=== PATIENT | female | born 1980 | race Caucasian/White ===

== ENCOUNTER → 2019-08-22 16:04 | Outpatient (CLI) | payer BC, SELFPAY ==
[2019-08-22 10:56] VITALS: BMI 22.1
[2019-08-22 18:46] LABS: HIV - WCH Non-Reactive (Nonreactive)
[2019-08-22 19:41] LABS: Chlamydia Trachomatis by PCR Negative (Negative); Neisserai gonorrhoeae by PCR Negative (Negative); Probe Check PASS; Sample Adequacy Control PASS; Specimen Processing Control PASS
[2019-08-25 02:24] LABS: Rapid Plasmin Reagin (RPR) NONREACTIVE (NONREACTIVE)
[2019-08-25 16:07] LABS: HCV Quant. RNA PCR HCV Not Detected IU/mL (.)
[2019-08-26 12:53] LABS: HSV 2 IgG < 0.91 index (0.00-0.90)
== END ==
PROVIDERS: Family Provider Family Medicine; PCP Family Medicine; Referring Provider Obstetrics & Gynecology; Visit Provider Obstetrics & Gynecology
DX: Z20.2 Contact with and (suspected) exposure to infections with a predominantly sexual mode of transmission (principal)
CPT/HCPCS: 36415; 86592; 86695; 86696; 86703; 87491; 87522; 87591

== ENCOUNTER → 2020-08-27 | Outpatient (CLI) | payer BC, SELFPAY ==
[2020-08-27 08:09] VITALS: BMI 26.5
== END | disposition home or self-care (01) ==
PROVIDERS: PCP Family Medicine; Referring Provider Obstetrics & Gynecology; Visit Provider Obstetrics & Gynecology
DX: Z12.4 Encounter for screening for malignant neoplasm of cervix (principal)

== ENCOUNTER → 2020-09-07 13:25 | Outpatient (CLI) | payer BC, SELFPAY ==
[2019-08-22 10:56] VITALS: BMI 22.1
[2020-08-31 13:17] VITALS: BMI 26.5
--- NOTE | 2020-09-07 13:39 | BI_ITS ---
MAMMOGRAPHY - BILATERAL SCREENING REASON FOR EXAM: Female, 40 years old. Routine annual screening examination. PERTINENT HISTORY: Non-contributory. TECHNIQUE: Digital bilateral breast danis (3D mammographic acquisition) in the CC and MLO projections. 2-D mediolateral oblique (MLO) and craniocaudad (CC) views of both breasts were obtained. CAD: Full Field Digital Mammography with Computer Added Detection was performed. COMPARISON: None. Baseline examination. FINDINGS: Breast Composition: There are scattered areas of fibroglandular density. There are no dominant masses or suspicious calcifications. No other significant abnormalities are identified. BI/SCRN MAMM (CAD)W/DANIS BILAT IMPRESSION: Negative screening mammogram. Yearly followup mammogram recommended. (A) ASSESSMENT CATEGORY: BIRADS Category 1: Negative. A letter regarding these results will be sent to the patient by the facility within 30 days. Approximately 10% of breast cancers are not detected by mammography. A normal mammogram should not delay biopsy of a clinically suspicious abnormality. [id number] Electronically Signed: Nghia León, at 14:19 EST , Service support ,
== END ==
PROVIDERS: PCP Family Medicine; Referring Provider Obstetrics & Gynecology; Visit Provider Obstetrics & Gynecology
DX: Z12.31 Encounter for screening mammogram for malignant neoplasm of breast (principal)
CPT/HCPCS: 77063; 77067

== ENCOUNTER 2021-10-28 16:00 | Outpatient (CLI) | payer BC, SELFPAY ==
[2021-11-06 13:31] LABS: HPV APTIMA, High Risk Negative (Negative)
== END 2021-10-28 23:59 | disposition home or self-care (01) ==
LOC: LABSPEC 16:02
PROVIDERS: PCP Family Medicine; Visit Provider Obstetrics & Gynecology
DX: Z12.4 Encounter for screening for malignant neoplasm of cervix (principal)
CPT/HCPCS: 87624; 88175; G0145

== ENCOUNTER 2021-11-25 13:16 | Outpatient (CLI) | payer BC, SELFPAY ==
--- NOTE | 2021-11-25 13:19 | BI_ITS ---
MAMMOGRAPHY - BILATERAL SCREENING REASON FOR EXAM: Female, 41 years old. Routine annual screening examination. PERTINENT HISTORY: Non-contributory. TECHNIQUE: Digital bilateral breast danis (3D mammographic acquisition) in the CC and MLO projections. 2-D mediolateral oblique (MLO) and craniocaudad (CC) views of both breasts were obtained. CAD: Full Field Digital Mammography with Computer Added Detection was performed. COMPARISON: Comparison is made with prior examination of 09/07/2020. FINDINGS: Breast Composition: There are scattered areas of fibroglandular density. There are no dominant masses or suspicious calcifications. No other significant abnormalities are identified. There has been no significant change since the prior study. BI/SCRN MAMM (CAD)W/DANIS BILAT IMPRESSION: Stable bilateral screening mammogram. Yearly follow-up mammogram recommended. (A) ASSESSMENT CATEGORY: BIRADS Category 1: Negative. A letter regarding these results will be sent to the patient by the facility within 30 days. Approximately 10% of breast cancers are not detected by mammography. A normal mammogram should not delay biopsy of a clinically suspicious abnormality. [id number] Electronically Signed: Nghia León MD at 14:04 EDT ,
== END 2021-11-25 23:59 | disposition home or self-care (01) ==
LOC: OPBI 13:18
PROVIDERS: PCP Family Medicine; Visit Provider Obstetrics & Gynecology
DX: Z12.31 Encounter for screening mammogram for malignant neoplasm of breast (principal)
CPT/HCPCS: 77063; 77067

== ENCOUNTER → 2021-12-12 | Outpatient (CLI) | payer BC, SELFPAY ==
--- NOTE | 2021-12-12 | CER_PTH ---
PATIENT: GLORIA PAIZ LOC: [facility] U#:[id number] AGE/SX: 41/F ROOM: RE12/12/[address]: Dr. Lexy Sol MD : 1980 BED: DIS: 12/12/2021 SPEC #: [id number] RECD: 12/12/21 11:19 STATUS: LUNA RELesa #: [id number] AVRIL: 12/12/21 00:[address]: Lexy Sol DEPT: SURGICAL PATHOLOGY RECD BY: Narda Moy ENTERED: 12/12/21 13:52 SP TYPE: CERV OTHR DR: Dr. Alfredo Armstrong, DO Tissues: A - Uterine cervix, NOS B - Endocervical Procedures: Surgery Specimen Level IV HEADER OPERATION: Colposcopy PRE-OP DIAGNOSIS: LGSIL TISSUE SUBMITTED: A ? 12 o?clock, B - ECC MICROSCOPIC DIAGNOSIS A. Cervix, 12 o?clock, biopsy: Scant minute fragments of benign ecto- and endocervical epithelium and mucous, negative for dysplasia. B. ECC: Fragments of benign endocervical epithelium and mucous, negative for dysplasia. CEDRIC:brody 12/13/2021 COMMENT Correlation with clinical findings and appropriate follow up are necessary. MICROSCOPIC DESCRIPTION Slides are reviewed. GROSS DESCRIPTION A - Received in fixative is one container labeled with the patient's name and designated 12 o'clock. The specimen consists of multiple minute fragments of mucoid keating tissue that in aggregate measure 0.5 x 0.1 x <0.1 cm. The specimen is totally submitted in one cassette. B - Received in fixative is one container labeled with the patient's name and designated ECC. The specimen consists of light keating mucoid material aggregating to 1 x 0.6 x <0.1 cm. The specimen is totally submitted in one cassette. / AM:brody 12/12/2021 TC:4 CPT: 49852 x2
== END | disposition home or self-care (01) ==
LOC: LABSPEC 13:44
PROVIDERS: PCP Family Medicine; Visit Provider Obstetrics & Gynecology
DX: R87.612 Low grade squamous intraepithelial lesion on cytologic smear of cervix (LGSIL) (principal)
CPT/HCPCS: 88305

== ENCOUNTER → 2022-01-02 | Outpatient (CLI) | payer BC, SELFPAY | END | disposition home or self-care (01) | LOC: LABSPEC 17:23 | PROVIDERS: PCP Family Medicine; Visit Provider Nurse Practitioner Women's Health | DX: N76.0 Acute vaginitis (principal) | CPT/HCPCS: 87070; 87205 ==

== ENCOUNTER → 2022-11-13 | Outpatient (CLI) | payer BC, SELFPAY ==
[2022-11-21 14:47] LABS: HPV APTIMA, High Risk Positive (Negative)
== END | disposition home or self-care (01) ==
LOC: LABSPEC 16:31
PROVIDERS: PCP Family Medicine; Referring Provider Obstetrics & Gynecology; Visit Provider Obstetrics & Gynecology
DX: Z12.4 Encounter for screening for malignant neoplasm of cervix (principal)
CPT/HCPCS: 87624; 88175; G0145

== ENCOUNTER → 2022-12-03 | Outpatient (CLI) | payer BC, SELFPAY ==
--- NOTE | 2022-12-03 14:38 | BI_ITS ---
MAMMOGRAPHY - BILATERAL SCREENING 3-D TOMOSYNTHESIS REASON FOR EXAM: Female, 42 years old. Routine screening PERTINENT HISTORY: No significant family history. TECHNIQUE: 2-D mammograms and 3-D Tomosynthesis of the breast (s) were performed. CAD was performed. COMPARISON: 09/07/2020 FINDINGS: The breast composition is composed of scattered fibroglandular density. Scattered benign calcifications are seen. No dense spiculated masses or suspicious microcalcifications are identified. No architectural distortion is identified. There is no skin thickening or retraction. There has been no significant change since the prior study. BI/SCRN MAMM (CAD)W/DANIS BILAT IMPRESSION: No mammographic signs of malignancy. Routine yearly mammograms recommended. ASSESSMENT CATEGORY: BIRADS Category 1: Negative. A letter regarding these results will be sent to the patient by the facility within 30 days. FOLLOW UP RECOMMENDATION: Yearly follow up mammogram recommended. (A) Approximately 10% of breast cancers are not detected by mammography. A normal mammogram should not delay biopsy of a clinically suspicious abnormality. Electronically Signed: Fady Cormier MD at 15:23 EDT ,
== END | disposition home or self-care (01) ==
LOC: OPBI 14:37
PROVIDERS: PCP Family Medicine; Referring Provider Obstetrics & Gynecology; Visit Provider Obstetrics & Gynecology
DX: Z12.31 Encounter for screening mammogram for malignant neoplasm of breast (principal)
CPT/HCPCS: 77063; 77067

== ENCOUNTER → 2022-12-25 | Outpatient (CLI) | payer BC, SELFPAY ==
--- NOTE | 2022-12-25 | IMM_PTH ---
PATIENT: GLORIA PAIZ LOC: [facility] U#:[id number] AGE/SX: 42/F ROOM: RE12/25/[address]: Dr. Lexy Sol MD : 1980 BED: DIS: 12/25/2022 SPEC #: [id number] RECD: 12/29/22 13:18 STATUS: LUNA REQ #: [id number] AVRIL: 12/25/22 00:[address]: Lexy Sol DEPT: IMMUNOHISTOCHEMISTRY RECD BY: Alanna Varela ENTERED: 12/29/22 13:19 SP TYPE: IMMUNO OTHR DR: Dr. Alfredo Armstrong, DO Tissues: A - Uterine cervix, NOS Procedures: p16 (initial) KI-67 (add) PHYSICIAN & INSTITUTION [place] [id number] SPECIMEN INFORMATION: Tissue Source: A ? Cervical biopsy at 12 o?clock Clinical Info: HPV positive Specimen Number: [id number] CPT code: 59645, 92456 METHODOLOGY: Deparaffinized sections of prefer/formalin-fixed tissue or PAP/DQ stained slides are incubated with monoclonal/polyclonal antibodies/oligonucleotide probes. Localization is made via biotin free immunoperoxidase method. Appropriate controls are performed and reacted as expected. Results on target cell population are indicated in the following table: RESULTS: ANTIBODY / CLONE RESULT Block A P16 (E6H4) positive, focal patchy staining Ki-67 (30-9) positive, low These tests were developed and their performance characteristics determined by [facility]. They may not have been cleared or approved by the U.S. Food and Drug Administration. The FDA has determined that such clearance or approval is not necessary. The above immunohistochemical/dualISH markers are ordered and reviewed by the Pathologist. INTERPRETATION: A. Cervix at 12 o?clock, biopsy: Focal changes consistent with HPV cytopathic effects. SJ:brody 12/30/2022
--- NOTE | 2022-12-25 | CER_PTH ---
PATIENT: GLORIA PAIZ [facility] U#:[id number] AGE/SX: 42/F ROOM: RE12/25/[address]: Dr. Lexy Sol MD : 1980 BED: DIS: 12/25/2022 SPEC #: [id number] RECD: 12/25/22 16:40 STATUS: LUNA REYES #: [id number] AVRIL: 12/25/22 00:[address]: Lexy Sol DEPT: SURGICAL PATHOLOGY RECD BY: Narda Moy ENTERED: 12/26/22 12:28 SP TYPE: CERV OTHR DR: Dr. Alfredo Armstrong, DO Tissues: A - Uterine cervix, NOS B - Endocervical Procedures: Surgery Specimen Level IV HEADER OPERATION: Colposcopy PRE-OP DIAGNOSIS: HPV positive TISSUE SUBMITTED: A ? Cervical biopsy 12 o?clock, B - Endocervical curettings MICROSCOPIC DIAGNOSIS A. Cervix, 12 o?clock, biopsy: A fragment of squamous epithelium with changes consistent with HPV cytopathic effects. Acute inflammation. See comment. B. Endocervical curettings: Scant desquamative squamous epithelial cells and mucous, negative for dysplasia. CEDRIC:brody 12/29/2022 COMMENT A. Immunohistochemistry ([id number]) for surrogate HPV marker (p16) supports the above diagnosis. MICROSCOPIC DESCRIPTION Slides are reviewed. GROSS DESCRIPTION A - Received in fixative is one container labeled with the patient's name and designated 12 o'clock. The specimen consists of one irregular fragment of light keating soft tissue that measures 0.2 x 0.2 x 0.1 cm. The specimen is totally submitted in one cassette. B - Received in fixative is one container labeled with the patient's name and designated ECC. The specimen consists of one fragment of hemorrhagic soft tissue measuring 0.2 x 0.1 x 0.1 cm. The specimen is totally submitted in one cassette. / CEDRIC:brody 12/26/2022 TC:3 CPT: 52535 x2
== END | disposition home or self-care (01) ==
LOC: LABSPEC 16:46
PROVIDERS: PCP Family Medicine; Referring Provider Obstetrics & Gynecology; Visit Provider Obstetrics & Gynecology
DX: R87.820 Cervical low risk human papillomavirus (HPV) DNA test positive (principal)
CPT/HCPCS: 88305; 88341; 88342

== ENCOUNTER → 2023-11-19 | Outpatient (CLI) | payer BC, SELFPAY ==
[2023-11-25 12:09] LABS: HPV APTIMA, High Risk Negative (Negative)
== END | disposition home or self-care (01) ==
PROVIDERS: PCP Family Medicine; Referring Provider Obstetrics & Gynecology; Visit Provider Obstetrics & Gynecology
DX: Z12.4 Encounter for screening for malignant neoplasm of cervix (principal)
CPT/HCPCS: 87624; 88175; G0145

== ENCOUNTER → 2023-12-07 | Outpatient (CLI) | payer BC, SELFPAY ==
--- NOTE | 2023-12-07 13:26 | BI_ITS ---
MAMMOGRAPHY - BILATERAL SCREENING REASON FOR EXAM: Female, 43 years old. Routine annual screening examination. PERTINENT HISTORY: Non-contributory. TECHNIQUE: Digital bilateral breast danis (3D mammographic acquisition) in the CC and MLO projections. 2-D mediolateral oblique (MLO) and craniocaudad (CC) views of both breasts were obtained. CAD: Full Field Digital Mammography with Computer Added Detection was performed. COMPARISON: Comparison is made with prior study dated December 03, 2022 and November 25, 2021. FINDINGS: Breast Composition: The breasts are almost entirely fatty. There are no dominant masses or suspicious calcifications. Stable small benign-appearing bilateral axillary lymph nodes. No other significant abnormalities are identified. There has been no significant change since the prior study. BI/SCRN MAMM (CAD)W/DANIS BILAT IMPRESSION: Stable bilateral screening mammogram. Yearly follow-up mammogram recommended. (A) ASSESSMENT CATEGORY: BIRADS Category 2: Benign. A letter regarding these results will be sent to the patient by the facility within 30 days. Approximately 10% of breast cancers are not detected by mammography. A normal mammogram should not delay biopsy of a clinically suspicious abnormality. [id number] Electronically Signed: Nghia León MD at 14:06 EDT ,
[2023-12-07 13:57] LABS: Absolute Lymphocyte Count 2.69 X10^3/uL (0.83-4.51); Absolute Neutrophil Count 5.8 X10^3/uL (2.0-7.7); Basophil# 0.09 X10^3/uL; Eosinophil# 0.07 X10^3/uL; Eosinophils% 0.8 % (0-5); Hematocrit 38.3 % (37-47); Lymphocyte # 2.69 X10^3/ul (0.83-4.51); Mean Corp Hgb Conc 33.9 g/dL (32-36); Mean Corpuscular Hgb 31.3 pg (27.0-32.0); Mean Corpuscular Volume 92.1 fL (81-99); Mean Platelet Vol. 10.1 fl (6.2-12.0); Monocyte# 0.59 X10^3/uL; Monocyte% 6.4 % (0-10); NRBC Flagged by Analyzer 0 % (0-5); Neutrophil # 5.78 X10^3/uL (2.7-7.7); Platelet Count 386 K/mm3 (150-450); RBC Distribution Width CV 13.3 % (11.6-14.6); RBC Distribution Width SD 44.7 fl (35.1-43.9); Red Blood Count 4.16 M/mm3 (4.2-5.4); White Blood Count 9.3 K/mm3 (4.4-11.0)
[2023-12-07 14:15] LABS: Vitamin D,25 Hydroxy 31.5 ng/mL
[2023-12-07 14:16] LABS: Hemoglobin A1c 5.1 % (3.8-5.6)
[2023-12-07 14:21] LABS: ALB/GLOB Ratio 1.1 RATIO (0.9-2.4); AST(SGOT) 20 U/L (15-37); Alanine Aminotransfer ALT/SGPT 39 U/L (13-56); Alkaline Phosphatase 78 U/L (45-117); Anion Gap 4 (5-15); BUN 14 mg/dL (7-18); BUN/Creat Ratio 16.2 RATIO (10-20); Chloride 105 mmol/L (98-107); Cholesterol 192 mg/dL (200); Creatinine, Serum 0.86 mg/dL (0.55-1.02); EST Glomerular Filtration Rate 76 mL/min (>60); Est Glom Filt Rate - Afr Amer 92 mL/min (>60); Globulin 3.5 g/dL (2.2-4.2); Glucose 95 mg/dL (74-106); High Density Lipoprotein 59 mg/dL; Protein, Total 7.5 g/dL (6.4-8.2); Sodium Level 136 mmol/L (136-145); Thyroid Stim Hormone (TSH) 0.96 uIU/mL (0.358-3.74); Triglycerides 79 mg/dL; Very Low Density Lipoprotein 16 mg/dL (5-40)
== END | disposition home or self-care (01) ==
LOC: OPBI 13:26
PROVIDERS: Referring Provider Obstetrics & Gynecology; Visit Provider Obstetrics & Gynecology
DX: Z12.31 Encounter for screening mammogram for malignant neoplasm of breast (principal); E05.00 Thyrotoxicosis with diffuse goiter without thyrotoxic crisis or storm; Z13.1 Encounter for screening for diabetes mellitus; Z13.21 Encounter for screening for nutritional disorder; Z13.220 Encounter for screening for lipoid disorders
CPT/HCPCS: 36415; 77063; 77067; 80053; 80061; 82306; 83036; 84443; 85025

== ENCOUNTER 2024-12-01 20:13 | Emergency (ER) | payer BC, SELFPAY ==
[2024-12-01 20:14] VITALS: BP 127/91; PULSE 85; RESP 17; TEMP 36.2; O2SAT 100; BMI 31.6
--- NOTE | 2024-12-01 21:57 | EX.ED.DYSGE1 ---
HPI History of Present Illness Chief Complaint: General Illness Informant: patient and spouse/S.O. Narrative Narrative: Presents with increasing fatigue and bruising. States 2-day ago scratching her thigh yesterday noted a bruise on her thigh. Also scratched her left arm yesterday noted slight bruise. She does not take any antiplatelets no blood thinners. There is no gum bleeding. She been more fatigued. At urine frequency. She is on thyroid medicines this was increased in July. No cough. No hematuria no rectal bleeding. States she has slight vaginal bleeding today and it is not timing of her current menstrual period. She spoke with her brother who is a physician told her to go to emergency department. [facility] Medical History Low grade squamous intraepithelial lesion (LGSIL) Graves disease Thyroid disorder Home Medications ?Medication ?Instructions ?Recorded ?Last Taken ?Type levonorgestrel 20.4 mcg/24 hr (up 1 device intrauterine ONCE 08/31/20 Unknown History to 8 yrs) 52 mg intrauterine device (Liletta) levothyroxine 75 mcg tablet 88 mcg PO DAILY 11/13/22 Unknown History bupropion HCl 150 mg 24 hr tablet, 150 mg PO QAM #30 tabs 11/19/23 Unknown Rx extended release (Wellbutrin XL) citalopram 40 mg tablet See Rx Instructions .Route 11/19/23 Unknown Rx .COMPLEX #90 tabs Allergy/AdvReac Type Severity Reaction Status Date / Time sulfamethoxazole (From Allergy Mild Other Verified 12/01/24 20:17 Bactrim) trimethoprim (From Bactrim) Allergy Mild Other Verified 12/01/24 20:17 Family History Mother Diabetes Thyroid disorder Hypertension Father Diabetes Hypertension Surgical History History of wisdom tooth extraction, class II edentulism H/O right knee surgery Social History Smoking Status: Never smoker alcohol intake: never substance use type: does not use caffeine: Yes what type of physical activity do you participate in: walking and aerobics frequency: 3-4 times per week seatbelt use: always do you feel safe at home: Yes additional social history: 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 [employer] ROS ED Constitutional Constitutional ED: Reports other Details: Fatigue ; Denies chills, fever(s) or sweats ENT ENT ED: Denies sore throat Cardiovascular Cardiovascular: Denies chest pain, leg edema, palpitations or racing heartbeat Respiratory/Chest Respiratory/Chest: Denies cough, dyspnea or dyspnea on exertion Gastrointestinal Gastrointestinal: Denies abdominal pain, diarrhea, nausea or vomiting Genitourinary Genitourinary ED: Reports urinary frequency; Denies dysuria or hematuria Musculoskeletal Musculoskeletal: Denies back pain, extremity pain or neck pain Integumentary Denies rash or wounds Neurologic Neurologic: Denies headache(s), paresthesias or weakness Hematologic/Lymphatic Hematologic/Lymphatic: Reports easy bruising EXAM Physical Exam Const Vital Signs: 12/01/24 20:14 12/01/24 22:30 Temperature 97.1 F L Temperature Source Temporal Pulse Rate 85 78 Respiratory Rate 17 18 Blood Pressure 127/91 H 128/83 H Blood Pressure Mean 103 98 Pulse Ox 100 99 Oxygen Delivery Method Room Air Room Air Positive well nourished and well developed General Appearance ED: well developed and NAD HEENT Reports moist mucous membranes HEENT Narrative: No genital bleeding or hyperplasia normocephalic and atraumatic Eyes General Eye ED: Yes normal appearance of both eyes Neck full ROM Chest Wall Chest: Negative for tenderness Resp normal respiratory effort and normal air movement Effort and Inspection: symmetric chest movement; Negative for respiratory distress Cardio regular rate, regular rhythm and no murmurs Peripheral Pulses: pulses 2+ throughout GI normal to inspection, nondistended, normoactive bowel sounds and non-tender Palpation: Negative for guarding or rebound tenderness present Extremity normal to inspection General Extremety ED: Negative for edema or tenderness General Extremity: Negative for edema Neuro oriented x3 and no sensory deficits noted Sensorium / Orientation: awake and alert Skin Skin Narrative: Right inner thigh small palm size ecchymosis distally. Left upper arm small ecchymosis laterally. Skin intact soft compartments. MDM MDM MDM Narrative Medical decision making narrative: Interventions / MDM: Differential diagnosis: Bruising Diagnosis considered but do not suspect: Thrombocytopenia however platelets normal. Urine infection urine negative. Electrolyte abnormalities however labs normal. Anemia however labs normal. Hypothyroidism however lab normal. My EKG interpretation: N/A Imaging independently reviewed and interpreted by myself: N/A External documents reviewed: N/A Test considered but not ordered:N/A ED course: Patient With 2 areas ecchymosis, no antiplatelets. Reports increasing fatigue. Will check labs evaluating platelets. Will check PT/INR. Will check for free thyroid levels as she is on medications and check urine. Patient lab studies all stable urine had microscopic urine however she had some vaginal bleeding today likely mixed. I discussed and reassured her lab findings with patient. Discussed bruising should improve with time. She had traumatic event with scratching. Discussed monitoring symptoms with outpatient follow-up. All questions were answered. Re-evaluation: stable Disposition discussed with patient/family/significant other: Patient and significant other Case discussed with consulting clinician: N/A This note was generated with [employer] dictation software. It may contain incorrect words, spelling, and punctuation that were not noted in checking the note before signing. Lab Data Attestation: I reviewed the patient's lab results. Labs: Laboratory Results - last 24 hr 12/01/24 12/01/24 20:41 20:50 WBC 7.6 RBC 4.15 L Hgb 13.4 Hct 38.0 MCV 91.6 MCH 32.3 H MCHC 35.3 RDW Std Deviation 40.5 RDW Coeff of Sue 12.1 Plt Count 398 MPV 11.0 Immature Gran % (Auto) 0.300 Neut % (Auto) 48.2 Lymph % (Auto) 42.1 H Burt % (Auto) 6.3 Eos % (Auto) 2.4 Baso % (Auto) 0.7 Absolute Neuts (auto) 3.7 Absolute Lymphs (auto) 3.18 Nucleated RBC % 0 PT 12.6 INR 0.9 APTT 34.2 Sodium 140 Potassium 4.0 Chloride 105 Carbon Dioxide 24.8 Anion Gap 10 BUN 11 Creatinine 0.83 Estim Creat Clear Calc 87.28 Est GFR (MDRD) Non-Af 89 BUN/Creatinine Ratio 12.8 Glucose 89 Calcium 9.2 Total Bilirubin 0.26 Direct Bilirubin 0.14 AST 18 ALT 13 Alkaline Phosphatase 89 Total Protein 6.8 Albumin 4.2 Globulin 2.6 Free T4 1.40 Urine Color Yellow Urine Clarity Clear Urine pH 6.5 Ur Specific Cherry 1.010 Urine Protein 15 H Urine Glucose (UA) Normal Urine Ketones Negative Urine Occult Blood 25 H Urine Nitrite Negative Urine Bilirubin Negative Urine Urobilinogen Normal Ur Leukocyte Esterase Negative Urine RBC 0 SEEN Urine WBC 0 SEEN Ur Squamous Epith Cells 0 SEEN Urine Bacteria 0 SEEN Urine Mucus 0 SEEN Discharge Plan Triage Chief Complaint: General Illness ED Provider: Garland Lopez Dx/Rx/DC Orders Clinical Impression: Abnormal bruising, Fatigue Instructions: Bruises (Contusions) Prescriptions: No Action Liletta 20.1 mcg/24 hrs (6 yrs) 52 mg intrauterine device 1 device INTRA-UTER ONCE Rx Instructions: as a single dose levothyroxine 75 mcg tablet 88 mcg PO DAILY citalopram 40 mg tablet See Rx Instructions .ROUTE .COMPLEX Qty: 90 3RF Dose Instruction: TAKE 1 TABLET DAILY Rx Instructions: TAKE 1 TABLET DAILY bupropion HCl [Wellbutrin XL] 150 mg tablet extended release 24 hr 150 mg PO QAM Qty: 30 12RF Primary Care Provider: Care Physician,No Primary Referrals: Raffi Mcconnell MD [Med Staff - Active Staff] - 1-2 Weeks Care Physician,No Primary [Primary Care Provider] - Activity Restrictions/Additional Instructions: Platelets 398, hemoglobin 13.4. Creatinine 0.83. BUN 11. INR 0.9 PTT 34.2. Liver enzymes normal. Free T4 1.4. All normal levels. Urine negative for infection. Monitor symptoms. Follow-up with primary care doctor. Print Language: Sami Disposition Disposition: Home, Self Care
[2024-12-01 22:02] LABS: Bacteria 0 SEEN /hpf (None Seen); Mucous, Urine 0 SEEN /hpf (<or=2+); Red Blood Cells-Urine 0 SEEN /hpf (0-5); Squamous Epithelial Cells - UA 0 SEEN /hpf (5-10); White Blood Cells 0 SEEN /hpf (0-5)
[2024-12-01 22:05] LABS: Color, Urine Yellow (Yellow); Glucose, Dipstick Normal (Normal); Ketone-Dipstick Negative (Negative); Leukocyte Esterase-Dipstick Negative /ul (Negative); Nitrite-Dipstick Negative (Negative); Occult Blood-Urine 25 /ul (Negative); Protein-Dipstick 15 mg/dl (Negative); Urine Bilirubin Dipstick Negative (Negative); Urine Clarity Clear (Clear); Urine Urobilinogen Normal (Normal); Urine pH 6.5 (5.0 - 8.0)
[2024-12-01 22:08] LABS: Absolute Lymphocyte Count 3.18 X10^3/uL (0.83-4.51); Absolute Neutrophil Count 3.7 X10^3/uL (2.0-7.7); Basophil# 0.05 X10^3/uL; Basophil% 0.7 % (0-1); Eosinophil# 0.18 X10^3/uL; Eosinophils% 2.4 % (0-5); Hemoglobin 13.4 g/dL (12.0-15.0); Lymphocyte # 3.18 X10^3/ul (0.83-4.51); Lymphocyte % 42.1 % (19-41); Mean Corp Hgb Conc 35.3 g/dL (32-36); Mean Corpuscular Hgb 32.3 pg (27.0-32.0); Mean Corpuscular Volume 91.6 fL (81-99); Monocyte# 0.48 X10^3/uL; Monocyte% 6.3 % (0-10); NRBC Flagged by Analyzer 0 % (0-5); Neutrophil # 3.65 X10^3/uL (2.7-7.7); Neutrophil % 48.2 % (47-70); Platelet Count 398 K/mm3 (150-450); RBC Distribution Width CV 12.1 % (11.6-14.6); RBC Distribution Width SD 40.5 fl (35.1-43.9); Red Blood Count 4.15 M/mm3 (4.2-5.4); White Blood Count 7.6 K/mm3 (4.4-11.0)
[2024-12-01 22:29] LABS: International Normalized Ratio 0.9; Prothrombin Time (Protime)PT. 12.6 SECONDS (11.7-14.9)
[2024-12-01 22:30] VITALS: BP 128/83; PULSE 78; RESP 18; O2SAT 99
[2024-12-01 22:30] LABS: Partial Thromboplast Time 34.2 Seconds (24.1-36.2)
[2024-12-01 22:42] LABS: AST(SGOT) 18 U/L (<=31); Alanine Aminotransfer ALT/SGPT 13 U/L (<=34); Albumin, Serum 4.2 g/dL (3.5-5.0); Alkaline Phosphatase 89 U/L (35-104); Anion Gap 10 (5-15); BUN 11 mg/dL (4-19); BUN/Creat Ratio 12.8 RATIO (10-20); Bilirubin, Direct 0.14 mg/dL (0.00-0.30); Calcium,Total 9.2 mg/dL (7.6-11.0); Carbon Dioxide 24.8 mmol/L (21.0-32.0); Chloride 105 mmol/L (98-108); Creatinine, Serum 0.83 mg/dL (0.70-1.20); EST Glomerular Filtration Rate 89 (>60); Estimated Creatinine Clearance 87.28 ml/min (50-250); Globulin 2.6 g/dL (2.2-4.2); Glucose 89 mg/dL (70-99); Protein, Total 6.8 g/dL (5.9-8.4); Sodium Level 140 mmol/L (133-145); Total Bilirubin 0.26 mg/dL (0.00-1.30)
[2024-12-01 22:54] VITALS: BP 128/83; PULSE 83; RESP 16; TEMP 36.7; O2SAT 100
== END 2024-12-01 22:50 | disposition home or self-care (01) ==
PROVIDERS: Emergency Provider Emergency Medicine; Visit Provider Emergency Medicine
DX: S40.021A Contusion of right upper arm, initial encounter (principal); S70.11XA Contusion of right thigh, initial encounter; X58.XXXA Exposure to other specified factors, initial encounter; E05.00 Thyrotoxicosis with diffuse goiter without thyrotoxic crisis or storm; E03.9 Hypothyroidism, unspecified; N93.9 Abnormal uterine and vaginal bleeding, unspecified; D64.9 Anemia, unspecified; R53.83 Other fatigue; R35.0 Frequency of micturition; Z79.890 Hormone replacement therapy; Z79.899 Other long term (current) drug therapy
CPT/HCPCS: 80048; 80076; 81001; 84439; 85025; 85610; 85730; 99282; A4216

== ENCOUNTER → 2025-02-10 | Outpatient (CLI) | payer BC, SELFPAY ==
--- NOTE | 2025-02-10 15:15 | BI_ITS ---
EXAM: SCRN MAMM (CAD)W/DANIS BILAT 02/10/2025 CLINICAL HISTORY: F, Age 44 y/o , SCREEN FOR BREAST CANCER TECHNIQUE: Bilateral screening digital breast tomosynthesis with 2D and 3D images. Computer aided detection. COMPARISON: Prior exam(s) dated 12/07/2023, 12/03/2022, 11/25/2021. FINDINGS: TISSUE DENSITY: The breast tissue is almost entirely fatty. Bilateral Breast Mammographic Findings: No significant masses, calcifications or other abnormalities are identified. BI/SCRN MAMM (CAD)W/DANIS BILAT IMPRESSION: Right Breast: BIRADS 1 NEGATIVE. Left Breast: BIRADS 1 NEGATIVE. OVERALL FINAL ASSESSMENT: BIRADS 1 NEGATIVE. RECOMMENDATION: Routine annual follow-up in 1 Year A letter with findings and recommendations will be mailed to the patient. Reading Location: [id number]
--- OUTSIDE RECORDS SUMMARY | 2025-02-10 19:27 | XMS RPT_ITS | CCD ---
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 Alfredo Armstrong Primary Care Provider Dr. Alfredo Armstrong Referring Provider Dr. Lexy Sol Attending Provider Chance Beckford MD Primary Care Provider Kelly SALCIDO, RADHA Hilario Attending Provider CHANCE BECKFORD Primary Care Unavailable EVERARDO VILLAREAL Attending Unavailable Dr. Alfredo Armstrong Primary Care Provider Dr. Alfredo Armstrong Referring Provider Dr. Lexy Sol Attending Provider Dr. Alfredo Armstrong Primary Care Provider Dr. Alfredo Armstrong Referring Provider Dr. Lexy Sol Attending Provider Care Physician, No Primary Primary Care Provider Unavailable Dr. Garland Lopez DO Emergency Provider [phone] Garland Lopez Attending Unavailable Care Physician, No Primary Primary Care Unava ilable Allergies Allergy Classification Reported Allergen(s) Allergy Type Date of Onset Reaction(s) Facility (8 sources) Sulfamethoxazole Drug Allergy [address] [facility] (8 sources) Trimethoprim Drug Allergy [address] [facility] (2 sources) Sulfamethoxazole / Trimethoprim; Translations: [SULFAMETHOXAZOLE-TR IMETHOPRIM] Drug Allergy 0 Rash [facility] Work Phone: (1 source) Sulfamethoxazole Drug Allergy 5 [facility] (1 source) Trimethoprim Drug Allergy 5 [facility] Medications Current Medications Medication Drug Class(es) Dates Sig (Normalized) Sig (Original) 24 hr buPROPion hydrochloride 150 mg extended release oral tablet (8 sources) Aminoketone Start: 11-13-2022 End: 11-19-2023 take 1 tablet by mouth once daily in the morning Bupropion Hcl (Wellbutrin Xl) 150 mg tablet extended release 24 hr Active 150 mg PO EVERY MORNING November 19, 2023 1:48pm levonorgestrel 0.349278 mg/hr intrauterine system (11 sources) Progestin, Progestin-containi ng Intrauterine Device Start: 08-31-2020 Levonorgestrel (Liletta) 20.1 mcg/24 hrs (6 yrs) 52 mg intrauterine device Active 1 NMA INTRA-UTER ONCE August 31, 2020 1:00am as a single dose Start: 08-31-2020 End: 08-31-2020 Levonorgestrel (Liletta) 20. 1 mcg/24 hrs (6 yrs) 52 mg intrauterine device Active 1 DEVICE INTRA-UTER ONCE August 31, 2020 1:00am as a single dose levothyroxine sodium 0.075 mg oral tablet (20 sources) l-Thyroxine Start: 11-13-2022 Levothyroxine 75 mcg tablet Active 88 ug PO DAILY November 13, 2022 3:33pm Start: 11-13-2022 take 88 ug by mouth once daily Levothyroxine Active 88 MCG PO DAILY November 13, 2022 3:33pm Start: 10-28-2021 End: 11-13-2022 take 1 tablet by mouth once daily Levothyroxine 75 mcg tablet Discontinued 75 ug PO DAILY October 28, 2021 1:00am November 13, 2022 3:33pm Start: 04-07-2018 End: 08-22-2019 take 1 tablet by mouth once daily Levothyroxine 50 mcg tablet Discontinued 50 ug PO daily April 07, 2018 12:00am August 22, 2019 11:54am Completed/Discontinued Medications Medication Drug Class(es) Dates Sig (Normalized) Sig (Original) citalopram 40 mg oral tablet (20 sources) Serotonin Reuptake Inhibitor Start: 08-22-2019 End: 11-19-2023 Citalopram 40 mg tablet Discontinued 0 .ROUTE .COMPLEX 90 November 19, 2022 10:29am November 19, 2023 1:47pm TAKE 1 TABLET DAILY Start: 04-07-2018 End: 08-22-2019 take 1 tablet by mouth once daily Citalopram (Celexa) 20 mg tablet Discontinued 20 mg PO daily June 13, 2019 1:56pm August 22, 2019 12:07pm Norgestimate-Ethinyl Estradiol (17 sources) Progestin, Estrogen Start: 06-08-2019 End: 08-22-2019 Norgestimate-Ethinyl Estradiol (Sprintec (28)) 0.25-35 mg-mcg tablet Discontinued 1 {tbl} PO daily June 08, 2019 8:35am August 22, 2019 11:54am Start: 06-08-2019 End: 08-22-2019 take 1 tablet by mouth once daily Norgestimate-Ethinyl Estradiol (Sprintec (28)) 0.25-35 mg-mcg tablet Discontinued 1 TABLET PO daily June 08, 2019 8:35am August 22, 2019 11:54am Start: 04-07-2018 End: 06-08-2019 take 1 tablet by mouth once daily Norgestimate-Ethinyl Estradiol (Sprintec (28)) 0.25-35 mg-mcg tablet Discontinued 1 TABLET PO daily April 07, 2018 11:13am June 08, 2019 8:35am Start: 04-07-2018 End: 06-08-2019 Norgestimate-Ethinyl Estradi ol (Sprintec (28)) 0.25-35 mg-mcg tablet Discontinued 1 {tbl} PO daily April 07, 2018 12:00am June 08, 2019 8:35am Start: 04-07-2018 End: 06-08-2019 take 1 tablet by mouth once daily Norgestimate-Ethinyl Estradiol (Sprintec (28)) 0.25-35 mg-mcg tablet Discontinued 1 TABLET PO daily April 07, 2018 12:00am June 08, 2019 8:35am Start: 02-09-2017 SPRINTEC 0.25- 35 mg-mcg per tablet TAKE 1 TABLET DAILY 84 tablet 3 02/09/2017 Active Comment on above: TAKE 1 TABLET DAILY fluconazole 150 mg oral tablet (6 sources) Azole Antifungal Start: 2 End: 2 Fluconazole 150 mg tablet Discontinued 150 mg PO .COMPLEX 2 January 02, 2022 12:00am January 06, 2022 8:32am 150 mg PO take one po now and repeat in 3 days methIMAzole 5 mg oral tablet (8 sources) Thyroid Hormone Synthesis Inhibitor Start: 9 End: 1 take 3 tablets by mouth once daily Methimazole 5 mg tablet Discontinued 15 mg PO DAILY August 22, 2019 1:00am August 27, 2020 9:09am Start: 08-22-2019 End: 08-27-2020 take 15 mg by mouth once daily Methimazole Discontinue d 15 MG PO DAILY August 22, 2019 1:00am August 27, 2020 9:09am metroNIDAZOLE 500 mg oral tablet (14 sources) Nitroimidazole Antimicrobial Start: 01-06-2022 End: 01-13-2022 take 1 tablet by mouth twice daily Metronidazole 500 mg tablet Discontinued 500 mg PO TWICE A DAY 14 January 06, 2022 12:00am January 12, 2022 12:00am January 13, 2022 12:03am Start: 08-22-2019 End: 08-27-2020 take 4 tablets by mouth once Metronidazole (Flagyl) 50 0 mg tablet Discontinued 2000 mg PO ONCE 4 August 22, 2019 1:00am August 27, 2020 9:09am propranolol hydrochloride 20 mg oral tablet (8 sources) beta-Adrenergic Ricardo Start: 08-22-2019 End: 08-27-2020 take 1 tablet by mouth twice daily Propranolol 20 mg tablet Discontinued 20 mg PO TWICE A DAY August 22, 2019 1:00am August 27, 2020 9:09am Problems Problem Classification Problem Date Documented Date Episodic/Chronic Bacterial infection; unspecified site (1 source) Other specified bacterial agents as the cause of diseases classified elsewhere; Translations: [Bacterial sinusitis] Onset: 06-30-2022 Episodic Coagulation and hemorrhagic disorders (1 source) Finding related to bruising; Translations: [Spontaneous ecchymoses] 12-01-2024 Episodic Contraceptive and procreative management (11 sources) Patient encounter status; Translations: [Encounter for contraceptive management, unspecified] 08-27-2020 Episodic Comment on above: No PA required. Ref. #[id number] Malaise and fatigue (1 source) Fatigue; Translations: [Other fatigue] 12-01-2024 Episodic Mood disorders (13 sources) Dysthymia; Translations: [Dysthymic disorder] 11-13-2022 Chronic Comment on above: celexa, stable. enco uraged counseling. wellbutrin added Other upper respiratory infections (1 source) Chronic sinusitis, unspecified; Translations: [Bacterial sinusitis] Onset: 06-30-2022 Chronic Residual codes; unclassified (15 sources) Abnormal cytology findings; Translations: [Low grade squamous intraepithelial lesion (LGSIL)] Episodic Comment on above: colp benign. repeat pap in 1 year Residual codes; unclassified (1 source) Illness, unspecified; Translations: [Illness, unspecified] Onset: 12-06-2024 Episodic Thyroid disorders (8 sources) Graves' disease; Translations: [Thyrotoxicosis with diffuse goiter without thyrotoxic crisis or storm] 08-22-2019 Chronic Viral infection (7 sources) Human papilloma virus infection; Translations: [Papillomavirus as the cause of diseases classified elsewhere] 11-24-2022 Episodic Comment on above: colp Results Test Name Value Interpretation Reference Range Facility Absolute neutrophil countOrd ered By: Garland Lopez on 12-01-2024 Neutrophils (Bld) [#/Vol] 3.7 10*3/uL 2.0-7.7 [facility] Anion gap in Serum or Plasma Ordered By: Garland Lopez on 12-01-2024 Anion gap [Moles/Vol] 10 mmol/L 01-05 [facility] BUN/creatinine ratioOrdered By: Garland Lopez on 12-01-2024 Urea nitrogen/Creatinine [Mass ratio] 12.8 mg/mg 06-12 [facility] Basic Metabolic Profile (BMP )on 12-01-2024 BUN/CRE 12.8 RATIO Normal 06-12 [facility] Comment on above: Performed By: #### L 506.0400, L500.3400, L300.4310, L100.0100, L300.3900, L500.2500 #### [facility], [address] Calcium [Mass/Vol] 9.2 mg/dL Normal 7.6-11.0 [facility] Comment on above: Performed By: #### L 506.0400, L500.3400, L300.4310, L100.0100, L300.3900, L500.2500 #### [facility] [address] [place], [address] Chloride [Moles/Vol] 105 mmol/L Normal 98-[address] [facility] Comment on above: Performed By: #### L 506.0400, L500.3400, L300.4310, L100.0100, L300.3900, L500.2500 #### [facility] [address] [place], [address] CO2 [Moles/Vol] 24.8 mmol/L Normal 21.0-32.0 [facility] Comment on above: Performed By: #### L 506.0400, L500.3400, L300.4310, L100.0100, L300.3900, L500.2500 #### [facility] [address] [place], [address] Creatinine [Mass/Vol] 0.83 mg/dL Normal 0.70-1.20 [facility] Comment on above: Performed By: #### L 506.0400, L500.3400, L300.4310, L100.0100, L300.3900, L500.2500 #### [facility] [address] [place], [address] ECRCL 87.28 ml/min Normal 50-250 [facility] Comment on above: Performed By: #### L 506.0400, L500.3400, L300.4310, L100.0100, L300.3900, L500.2500 #### [facility] [address] [place], [address] GAP 10 Normal 5-15 [facility] Comment on above: Performed By: #### L 506.0400, L500.3400, L300.4310, L100.0100, L300.3900, L500.2500 #### [facility] [address] [place], [address] GFR/1.73 sq M.predicted among non-blacks MDRD (S/P/Bld) [Vol rate/Area] 89 mL/min/{1.73_m2} Normal >60 [facility] Comment on above: Result Comment: mL/m in/1.73m2 CKD-EPI Creatinine Equation (2020) Performed By: #### L 506.0400, L500.3400, L300.4310, L100.0100, L300.3900, L500.2500 #### [facility] [address] [place], [address] Glucose [Mass/Vol] 89 mg/dL Normal 70-99 [facility] Comment on above: Performed By: #### L 506.0400, L500.3400, L300.4310, L100.0100, L300.3900, L500.2500 #### [facility] [address] [place], [address] Potassium [Moles/Vol] 4.0 mmol/L Normal 3.3-5.1 [facility] Comment on above: Performed By: #### L 506.0400, L500.3400, L300.4310, L100.0100, L300.3900, L500.2500 #### [facility] [address] [place], [address] Sodium [Moles/Vol] 140 mmol/L Normal 133-145 [facility] Comment on above: Performed By: #### L 506.0400, L500.3400, L300.4310, L100.0100, L300.3900, L500.2500 #### [facility] [address] [place], [address] Urea nitrogen [Mass/Vol] 11 mg/dL Normal 4-19 [facility] Comment on above: Performed By: #### L 506.0400, L500.3400, L300.4310, L100.0100, L300.3900, L500.2500 #### [facility] [address] [place], [address] Basophil percentageOrdered B y: Garland Lopez on 12-01-2024 Basophils/100 WBC (Bld) 0.7 % 0-1 [facility] Bilirubin Test strip Ql (U)O rdered By: Garland Lopez on 12-01-2024 Bilirubin Ql (U) Negative Negative [facility] Bilirubin directOrdered By: Garland Lopez on 12-01-2024 Bilirubin.direct [Mass/Vol] 0.14 mg/dL 0.00-0.30 [facility] Bilirubin, totalOrdered By: Garland Lopez on 12-01-2024 Bilirubin [Mass/Vol] 0.26 mg/dL 0.00-1.[address] [facility] CBC W/Diff, Automatedon 11-22 0-2024 Absolute Lymph 3.18 X10 3/uL Normal 0.83-4.51 [facility] Comment on above: Performed By: #### L 506.0400, L500.3400, L300.4310, L100.0100, L300.3900, L500.2500 #### [facility] [address] [place], [address] Absolute Neut 3.7 X10 3/uL Normal 2.0-7.7 [facility] Comment on above: Performed By: #### L 506.0400, L500.3400, L300.4310, L100.0100, L300.3900, L500.2500 #### [facility] [address] [place], [address] Basophils/100 WBC (Bld) 0.7 % Normal 0-1 [facility] Comment on above: Performed By: #### L 506.0400, L500.3400, L300.4310, L100.0100, L300.3900, L500.2500 #### [facility] [address] [place], [address] Eosinophils/100 WBC (Bld) 2.4 % Normal 0-5 [facility] Comment on above: Performed By: #### L 506.0400, L500.3400, L300.4310, L100.0100, L300.3900, L500.2500 #### [facility] [address] [place], [address] Erythrocyte distribution width (RBC) [Ratio] 12.1 % Normal 11.6-14.6 [facility] Comment on above: Performed By: #### L 506.0400, L500.3400, L300.4310, L100.0100, L300.3900, L500.2500 #### [facility] [address] [place], [address] Hematocrit (Bld) [Volume fraction] 38.0 % Normal 37-47 [facility] Comment on above: Performed By: #### L 506.0400, L500.3400, L300.4310, L100.0100, L300.3900, L500.2500 #### [facility] [address] [place], [address] Hemoglobin (Bld) [Mass/Vol] 13.4 g/dL Normal 12.0-15.0 [facility] Comment on above: Performed By: #### L 506.0400, L500.3400, L300.4310, L100.0100, L300.3900, L500.2500 #### [facility] [address] [place], [address] IG% 0.300 Normal 0.0-0.9 [facility] Comment on above: Result Comment: IG% - Immature Granulocytes (promyelocytes, myelocytes and metamyelocytes) > 1% indicates that a LEFT SHIFT is Present. Performed By: #### L 506.0400, L500.3400, L300.4310, L100.0100, L300.3900, L500.2500 #### [facility] [address] [place], [address] Lymphocytes/100 WBC (Bld) 42.1 % High 19-41 [facility] Comment on above: Performed By: #### L 506.0400, L500.3400, L300.4310, L100.0100, L300.3900, L500.2500 #### [facility] [address] [place], [address] MCH (RBC) [Entitic mass] 32.3 pg High 27.0-32.0 [facility] Comment on above: Performed By: #### L 506.0400, L500.3400, L300.4310, L100.0100, L300.3900, L500.2500 #### [facility] [address] [place], [address] MCHC (RBC) [Mass/Vol] 35.3 g/dL Normal 32-36 [facility] Comment on above: Performed By: #### L 506.0400, L500.3400, L300.4310, L100.0100, L300.3900, L500.2500 #### [facility] [address] [place], [address] MCV (RBC) [Entitic vol] 91.6 fL Normal 81-99 [facility] Comment on above: Performed By: #### L 506.0400, L500.3400, L300.4310, L100.0100, L300.3900, L500.2500 #### [facility] [address] [place], [address] Monocytes/100 WBC (Bld) 6.3 % Normal 0-10 [facility] Comment on above: Performed By: #### L 506.0400, L500.3400, L300.4310, L100.0100, L300.3900, L500.2500 #### [facility] [address] [place], [address] Neutrophils/100 WBC (Bld) 48.2 % Normal 47-70 [facility] Comment on above: Performed By: #### L 506.0400, L500.3400, L300.4310, L100.0100, L300.3900, L500.2500 #### [facility] [address] [place], [address] Nucleated RBC (Bld) [#/Vol] 0 10*3/uL Normal 0-5 [facility] Comment on above: Performed By: #### L 506.0400, L500.3400, L300.4310, L100.0100, L300.3900, L500.2500 #### [facility] [address] [place], [address] Platelet mean volume (Bld) [Entitic vol] 11.0 fL Normal 6.2-12.0 [facility] Comment on above: Performed By: #### L 506.0400, L500.3400, L300.4310, L100.0100, L300.3900, L500.2500 #### [facility] [address] [place], [address] Platelets (Bld) [#/Vol] 398 10*3/uL Normal 150-450 [facility] Comment on above: Performed By: #### L 506.0400, L500.3400, L300.4310, L100.0100, L300.3900, L500.2500 #### [facility] [address] [place], [address] RBC (Bld) [#/Vol] 4.15 10*6/uL Low 4.2-5.4 [facility] Comment on above: Performed By: #### L 506.0400, L500.3400, L300.4310, L100.0100, L300.3900, L500.2500 #### [facility] [address] [place], [address] RDW SD 40.5 fl Normal 35.1-43.9 [facility] Comment on above: Performed By: #### L 506.0400, L500.3400, L300.4310, L100.0100, L300.3900, L500.2500 #### [facility] [address] [place], [address] WBC (Bld) [#/Vol] 7.6 10*3/uL Normal 4.4-11.0 [facility] Comment on above: Performed By: #### L 506.0400, L500.3400, L300.4310, L100.0100, L300.3900, L500.2500 #### [facility] [address] [place], [address] Carbon dioxide, total [Moles /volume] in Central venous bloodOrdered By: Garland Lopez on 12-01-2024 CO2 [Moles/Vol] 24.8 mmol/L 21.0-32.0 [facility] Chloride assayOrdered By: Ghassan Lopez on 12-01-2024 Chloride [Moles/Vol] 105 mmol/L 98-[address] [facility] Emergency Department Summary on 12-01-2024 Emergency Department Summary [facility] Medical Records Department [address] [place] [address] Emergency Department Summary 12/01/24 MR#: [id number] Acct: [id number] Name: SUN PAIZ Rep #: [id number] : 1980 44 From: Garland Kuhn PCP: Care Physician,No Primary Status:REG ER Location: ED HPI History of Present Illness Chief Complaint: General Illness Informant: patient and spouse/S.O. Narrative Narrative: Presents with increasing fatigue and bruising. States 2-day ago scratching her thigh yesterday noted a bruise on her thigh. Also scratched her left arm yesterday noted slight bruise. She does not take any antiplatelets no blood thinners. There is no gum bleeding. She been more fatigued. At urine frequency. She is on thyroid medicines this was increased in July. No cough. No hematuria no rectal bleeding. States she has slight vaginal bleeding today and it is not timing of her current menstrual period. She spoke with her brother who is a physician told her to go to emergency department. [facility] Medical History Low grade squamous intraepithelial lesion (LGSIL) Graves disease Thyroid disorder Home Medications ???Medication ???Instructions ???Recorded ???Last Taken ???Type levonorgestrel 20.4 mcg/24 hr (up 1 device intrauterine ONCE Unknown History to 8 yrs) 52 mg intrauterine device (Liletta) levothyroxine 75 mcg tablet 88 mcg PO DAILY 11/13/22 Unknown H istory bupropion HCl 150 mg 24 hr tablet, 150 mg PO QAM #30 tabs 11/19/23 Unknown Rx extended release (Wellbutrin XL) citalopram 40 mg tablet See Rx Instructions .Route 4 Unknown Rx .COMPLEX #90 tabs Allergy/AdvReac Type Severity Reaction Status Date / Time sulfamethoxazole (From Allergy Mild Other Verified 12/01/24 20:17 Bactrim) trimethoprim (From Bactrim) Allergy Mild Other Verified 12/01/24 20:17 Family History Mother Diabetes Thyroid disorder Hypertension Father Diabetes Hypertension Surgical History History of wisdom tooth extraction, class II edentulism H/O right knee surgery Social History Smoking Status: Never smoker alcohol intake: never substance use type: does not use caffeine: Yes what type of physical activity do you participate in: walking and aerobics frequency: 3-4 times per week seatbelt use: always do you feel safe at home: Yes additional social history: 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 [employer] ED Constitutional Constitutional ED: Reports other Details: Fatigue ; Denies chills, fever(s) or sweats ENT ENT ED: Denies sore throat Cardiovascular Cardiovascular: Denies chest pain, leg edema, palpitations or racing heartbeat Respiratory/Chest Respiratory/Chest: Denies cough, dyspnea or dyspnea on exertion Gastrointestinal Gastrointestinal: Denies abdominal pain, diarrhea, nausea or vomiting Genitourinary Genitourinary ED: Reports urinary frequency; Denies dysuria or hematuria Musculoskeletal Musculoskeletal: Denies back pain, extremity pain or neck pain Integumentary Denies rash or wounds Neurologic Neurologic: Denies headache(s), paresthesias or weakness Hematologic/Lymphatic Hematologic/Lymphatic: Reports easy bruising EXAM Physical Exam Const Vital Signs: 12/01/24 20:14 12/01/24 22:30 Temperature 97.1 F L Temperature Source Temporal Pulse Rate 85 78 Respiratory Rate 17 18 Blood Pressure 127/91 H 128/83 H Blood Pressure Mean 103 98 Pulse Ox 100 99 Oxygen Delivery Method Room Air Room Air Positive well nourished and well developed General Appearance ED: well developed and NAD HEENT Reports moist mucous membranes HEENT Narrative: No genital bleeding or hyperplasia normocephalic and atraumatic Eyes General Eye ED: Yes normal appearance of both eyes Neck full ROM Chest Wall Chest: Negative for tenderness Resp normal respiratory effort and normal air movement Effort and Inspection: symmetric chest movement; Negative for respiratory distress Cardio regular rate, regular rhythm and no murmurs Peripheral Pulses: pulses 2+ throughout GI normal to inspection, nondistended, normoactive bowel sounds and non-tender Palpation: Negative for guarding or rebound tenderness present Extremity normal to inspection General Extremety ED: Negative for edema or tenderness General Extremity: Negative for edema Neuro oriented x3 and no sensory deficits noted Sensorium / Orientation: awake and alert Skin Skin Narrative: Right inner thigh small palm size ecchymosis distally. Left upper arm small ecchymosis laterally. (more content not included)... Normal [facility] Eosinophil percentageOrdered By: Garland Lopez on 12-01-2024 Eosinophils/100 WBC (Bld) 2.4 % 0-5 [facility] Epithelial cells.squamous LM Ql (Urine sed)Ordered By: Garland Lopez on 12-01-2024 Epithelial cells.squamous LM.HPF (Urine sed) [#/Area] 0 /[HPF] 5-10 [facility] Erythrocyte distribution wid th (RBC) [Ratio]Ordered By: Garland Lopez on 12-01-2024 Erythrocyte distribution width (RBC) [Entitic vol] 40.5 fL 35.1-43.9 [facility] Erythrocyte distribution wid th ratioOrdered By: Garland Lopez on 12-01-2024 Erythrocyte distribution width (RBC) [Ratio] 12.1 % 11.6-14.6 [facility] Estimation of creatinine diaz aranceOrdered By: Garland Lopez on 12-01-2024 Estimated Creatinine Clearance Calc 87.28 ml/min 50-250 [facility] GFR/1.73 sq M.predicted lester g non-blacks MDRD (S/P/Bld) [Vol rate/Area]Ordered By: Garland Lopez on 12-01-2024 Estimated GFR (MDRD) Non-Af Amer 89 >60 [facility] Comment on above: mL/min/1.73m2 CKD-EP I Creatinine Equation (2020) Glucose Ql (U)Ordered By: Ghassan Lopez on 12-01-2024 Urine Glucose (UA) Normal mg/dl Normal [facility] Hematocrit Auto (Bld) [Volum e fraction]Ordered By: Garland Lopez on 12-01-2024 Hematocrit (Bld) [Volume fraction] 38.0 % 37-47 [facility] Hemoglobin measurementOrdere d By: Garland Lopez on 12-01-2024 Hemoglobin (Bld) [Mass/Vol] 13.4 g/dL 12.0-15.0 [facility] Immature granulocytes/100 WB C Auto (Bld)Ordered By: Garland Lopez on 12-01-2024 Immature granulocytes/100 WBC (Bld) 0.300 % 0.0-0.9 [facility] Comment on above: IG% - Immature Granu locytes (promyelocytes, myelocytes and metamyelocytes) > 1% indicates that a LEFT SHIFT is Present. International normalized rat io (INR) calculationOrdered By: Garland Lopez on 12-01-2024 INR Coag (Bld) [Relative time] 0.9 {INR} [facility] Ketones Test strip Ql (U)Ord ered By: Garland Lopez on 12-01-2024 Ketones Ql (U) Negative Negative [facility] - Chemistry and C hemistry - challengeOrdered By: Garland Lopez on 12-01-2024 AST [Catalytic activity/Vol] 18 U/L <32 [facility] Liver Profileon 12-01-2024 Albumin [Mass/Vol] 4.2 g/dL Normal 3.5-5.0 [facility] Comment on above: Performed By: #### L 506.0400, L500.3400, L300.4310, L100.0100, L300.3900, L500.2500 #### [facility] [address] [place], [place], [address] ALK PHOS 89 U/L Normal 35-104 [facility] Comment on above: Performed By: #### L 506.0400, L500.3400, L300.4310, L100.0100, L300.3900, L500.2500 #### [facility] [address] [place], [address] ALT [Catalytic activity/Vol] 13 U/L Normal <=34 [facility] Comment on above: Performed By: #### L 506.0400, L500.3400, L300.4310, L100.0100, L300.3900, L500.2500 #### [facility] [address] [place], [address] AST [Catalytic activity/Vol] 18 U/L Normal <=31 [facility] Comment on above: Performed By: #### L 506.0400, L500.3400, L300.4310, L100.0100, L300.3900, L500.2500 #### [facility] [address] [place], [address] Bilirubin [Mass/Vol] 0.26 mg/dL Normal 0.00-1.[address] [facility] Comment on above: Performed By: #### L 506.0400, L500.3400, L300.4310, L100.0100, L300.3900, L500.2500 #### [facility] [address] [place], [address] Bilirubin.direct [Mass/Vol] 0.14 mg/dL Normal 0.00-0.30 [facility] Comment on above: Performed By: #### L 506.0400, L500.3400, L300.4310, L100.0100, L300.3900, L500.2500 #### [facility] [address] [place], [address] Globulin (S) [Mass/Vol] 2.6 g/dL Normal 2.2-4.2 [facility] Comment on above: Performed By: #### L 506.0400, L500.3400, L300.4310, L100.0100, L300.3900, L500.2500 #### [facility] [address] [place], [address] T PROT 6.8 g/dL Normal 5.9-8.4 [facility] Comment on above: Performed By: #### L 506.0400, L500.3400, L300.4310, L100.0100, L300.3900, L500.2500 #### [facility] [address] [place], [address] Lymphocytes Auto (Unsp spec) [#/Vol]Ordered By: Garland Lopez on 12-01-2024 Lymphocytes (Bld) [#/Vol] 3.18 10*3/uL 0.83-4.51 [facility] Lymphocytes/100 WBC Auto (Un sp spec)Ordered By: Garland Lopez on 12-01-2024 Lymphocytes/100 WBC (Bld) 42.1 % High 19-41 [facility] MCV (mean corpuscular volume ) determinationOrdered By: Garland Lopez on 12-01-2024 MCV (RBC) [Entitic vol] 91.6 fL 81-99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 [address] [address] CANDELARIO SCR (TITER) Positive High () [facility] Comment on above: Result Comment: Nega tive <1:80 Borderline 1:80 Positive >1:80 Performed By: #### L 700.13444, L750.57551 #### [facility] [address] [address] CANDELARIO SPECKLED 1:80 Normal () [facility] Comment on above: Result Comment: ICAP nomenclature: AC-2,4,5,29 Performed By: #### L 700.73619, L750.95305 #### [facility] [address] [address] ANTITHYROID ABSon 10-17-2021 MICROSOMAL ABS 199 IU/mL High 0-34 [facility] Comment on above: Performed By: #### L 700.26920, L750.37014 #### [facility] [address] [address] THYROGLOB ANTIB < 1.0 Normal 0.0-0.9 [facility] Comment on above: Result Comment: Thyr oglobulin Antibody measured by [employer] [place] Methodology Performed By: #### L 700.80737, L750.26270 #### [facility] [address] [address] CRPon 10-15-2021 CRP [Mass/Vol] 0.4 mg/L Normal LESS THAN 1 [facility] Comment on above: Performed By: #### L 700.36354, L750.86969 #### [facility] [address] [address] T3 FREEon 10-15-2021 Free T3 [Mass/Vol] 3.38 pg/mL Normal 2.18-3.98 [facility] Comment on above: Performed By: #### L 700.47880, L750.32472 #### [facility] [address] [place] [address] T4 FREEon 10-15-2021 Free T4 [Mass/Vol] 0.83 ng/dL Normal 0.76-1.46 [facility] Comment on above: Performed By: #### L 700.05674, L750.04923 #### [facility] [address] [address] TSHon 10-15-2021 TSH 9.821 UIU/ML High 0.358-3.74 0 [facility] Comment on above: Result Comment: 3rd generation ultra sensitive TSH Performed By: #### L 700.64072, L750.68872 #### [facility] [address] [place] [address] WSR/MODon 10-15-2021 WSR/MOD 7 MM/HR Normal 0-20 [facility] Comment on above: Performed By: #### L 200.17684 #### [facility] [address] [place] [address] BMPon 10-10-2021 Anion gap [Moles/Vol] 8 mmol/L Normal 5-16 [facility] Comment on above: Order Comment: Campu s: M Performed By: #### L 500.64961, L500.87171 #### [facility] [address] [place] [address] Calcium [Mass/Vol] 9.7 mg/dL Normal 8.5-10.5 [facility] Comment on above: Order Comment: Campu s: M Result Comment: NOTE NEW NORMAL RANGE DUE TO REAGENT CHANGE Performed By: #### L 500.24677, L500.99144 #### [facility] [place] [address] Chloride [Moles/Vol] 107 mmol/L Normal 98-107 [facility] Comment on above: Order Comment: Campu s: M Performed By: #### L 500.13671, L5.09433 #### [facility] [address] [place] [id number] CO2 [Moles/Vol] 26.0 mmol/L Normal 21-32 [facility] Comment on above: Order Comment: Campu s: M Performed By: #### L 500.79591, L5.19672 #### [facility] [address] [place] [address] Creatinine [Mass/Vol] 0.72 mg/dL Normal 0.510- 0.95 0 [facility] Comment on above: Order Comment: Campu s: M Result Comment: Trini ents receiving either N-Acetylcysteine (NAC) or Metamizole prior to venipuncture, may have falsely depressed results. Performed By: #### L 500.76314, L5.89143 #### [facility] [address] [place] [address] Glucose [Mass/Vol] 89 mg/dL Normal 70-100 [facility] Comment on above: Order Comment: Campu s: M Result Comment: 70-1 00- Normal Fasting; 100-125 Impaired Fasting; greater than 126 on more than one result- Diabetes. ADA guidelines. Results may be falsely elevated after the administration of Sulfapyridine. Results may be falsely depressed after the administration of Sulfasalazine. Performed By: #### L 500.13497, L5.89125 #### [facility] [address] [place] [address] Potassium [Moles/Vol] 3.8 mmol/L Normal 3.5-5.1 [facility] Comment on above: Order Comment: Campu s: M Performed By: #### L 500.07677, L5.01128 #### [facility] [place] [address] Sodium [Moles/Vol] 141 mmol/L Normal 136-145 [facility] Comment on above: Order Comment: Campu s: M Performed By: #### L 500.30854, L500.40752 #### [facility] [address] [place] [address] Urea nitrogen [Mass/Vol] 8 mg/dL Normal 7-26 [facility] Comment on above: Order Comment: Campu s: M Performed By: #### L 500.32969, L500.94717 #### [facility] [address] [place] [address] Urea nitrogen/Creatinine [Mass ratio] 11 mg/mg Low 15-24 [facility] Comment on above: Order Comment: Campu s: M Performed By: #### L 500.86113, L500.42209 #### [facility] [address] [place] [address] CBC W/DIFFon 10-10-2021 BASO ABS 0.00 K/CU MM Normal 0-0.2 [facility] Comment on above: Order Comment: Campu s: M Performed By: #### L 700.90057, L750.73788 #### [facility] [address] [place] [address] Basophils/100 WBC (Bld) 0.6 % Normal 0-2 [facility] Comment on above: Order Comment: Campu s: M Performed By: #### L 700.46907, L750.70619 #### [facility] [address] [place] [address] EOS ABS 0.00 K/CU MM Normal 0-0.5 [facility] Comment on above: Order Comment: Campu s: M Performed By: #### L 700.72547, L750.44454 #### [facility] [address] [place] [address] Eosinophils/100 WBC (Bld) 0.6 % Normal 0-5 [facility] Comment on above: Order Comment: Campu s: M Performed By: #### L 700.32109, L750.28643 #### [facility] [address] [address] Erythrocyte distribution width (RBC) [Ratio] 14.1 % Normal 11-14.5 [facility] Comment on above: Order Comment: Campu s: M Performed By: #### L 700.39810, L750.23212 #### [facility] [address] [address] Hematocrit (Bld) [Volume fraction] 33.3 % Low 35.0-47.0 [facility] Comment on above: Order Comment: Campu s: M Performed By: #### L 700.29609, L750.95545 #### [facility] [address] [address] Hemoglobin (Bld) [Mass/Vol] 11.2 g/dL Low 11.5-15.5 [facility] Comment on above: Order Comment: Campu s: M Performed By: #### L 700.83413, L750.26421 #### [facility] [address] [address] IMMATR GRAN ABS 0.00 K/CU MM Normal Less than 2 [facility] Comment on above: Order Comment: Campu s: M Performed By: #### L 700.23563, L750.54842 #### [facility] [address] [address] IMMATURE GRAN % 0.4 % Normal Less than 2 [facility] Comment on above: Order Comment: Campu s: M Performed By: #### L 700.11109, L750.84887 #### [facility] [address] [address] LYMPH ABS 1.90 K/CU MM Normal 0.9-4.4 [facility] Comment on above: Order Comment: Campu s: M Performed By: #### L 700.08970, L750.13666 #### [facility] [address] [address] Lymphocytes/100 WBC (Bld) 26.6 % Normal 20-40 [facility] Comment on above: Order Comment: Campu s: M Performed By: #### L 700.74358, L750.56215 #### [facility] [address] [address] MCHC (RBC) [Mass/Vol] 33.6 g/dL Normal 32.0-36.0 [facility] Comment on above: Order Comment: Campu s: M Performed By: #### L 700.56101, L750.61552 #### [facility] [address] [address] MCV (RBC) [Entitic vol] 90.7 fL Normal 80.0-99.0 [facility] Comment on above: Order Comment: Campu s: M Performed By: #### L 700.56208, L750.50417 #### [facility] [address] [address] MONO ABS 0.50 K/CU MM Normal 0.1-1.1 [facility] Comment on above: Order Comment: Campu s: M Performed By: #### L 700.41575, L750.24177 #### [facility] [address] [address] Monocytes/100 WBC (Bld) 6.4 % Normal 2-10 [facility] Comment on above: Order Comment: Campu s: M Performed By: #### L 700.72988, L750.66435 #### [facility] [address] [address] NEUTROPHIL ABS 4.70 K/CU MM Normal 2.0-8.3 [facility] Comment on above: Order Comment: Campu s: M Performed By: #### L 700.87732, L750.05535 #### [facility] [address] [address] Neutrophils/100 WBC (Bld) 65.4 % Normal 45-75 [facility] Comment on above: Order Comment: Campu s: M Performed By: #### L 700.70973, L750.51635 #### [facility] [address] [address] Nucleated RBC/100 WBC (Bld) [Ratio] 0.0 % Normal Less than 1 [facility] Comment on above: Order Comment: Campu s: M Performed By: #### L 700.54533, L750.12611 #### [facility] [address] [address] Platelet mean volume (Bld) [Entitic vol] 10.8 fL Normal 9.4-12.4 [facility] Comment on above: Order Comment: Campu s: M Performed By: #### L 700.07856, L750.81842 #### [facility] [address] [address] PLT 363 K/CU MM Normal 150-450 [facility] Comment on above: Order Comment: Campu s: M Performed By: #### L 700.61194, L750.94815 #### [facility] [address] [address] RBC 3.67 M/CU MM Low 3.90-5.30 [facility] Comment on above: Order Comment: Campu s: M Performed By: #### L 700.82402, L750.51594 #### [facility] [address] [place] [address] WBC 7.2 K/CUMM Normal 4.5-11.0 [facility] Comment on above: Order Comment: Campu s: M Performed By: #### L 700.27127, L750.02523 #### [facility] [address] [place] [address] CT ANG THOR W/POST PROCon CT ANG THOR W/POST PROC CT ANG THOR W/POST PROC Ordering Physician: Sandie Rosenthal 10/10/2021 3:[address] ANGIOGRAPHY OF THE THORAX WITH MULTIPLANAR AND 3-D RECONSTRUCTION Clinical Statement: Syncope, right-sided chest pain. Comparison: None. TECHNIQUE: Contiguous axial images were acquired through the chest using bolus tracking technique centered on the main pulmonary artery following the uneventful administration of 85 cc Isovue-370 intravenously. Coronal and sagittal reconstructions were performed. 3-D reconstructed MIP images were created and reviewed by the radiologist on an independent workstation ([employer]). FINDINGS: There is satisfactory pulmonary artery opacification. There is motion artifact within the right lower lobe, limiting assessment of the small pulmonary artery branches. There are no suspicious filling defects or vessel cut off seen within the left pulmonary arteries. No large central embolism. There are no features of right heart strain. Heart size is within normal limits. No pericardial effusion. The thoracic aorta is normal in caliber. The esophagus is normal in course and caliber. The visualized thyroid is unremarkable. There are no pathologically enlarged thoracic lymph nodes. The lungs appear clear with no consolidation identified. Major airways are patent. No pleural effusions or pneumothorax. Images through the upper abdomen are unremarkable. The osseous structures are intact. IMPRESSION: 1. No evidence of pulmonary artery embolism, with compromised assessment of the small right lower lobe segmental and subsegmental pulmonary artery branches secondary to motion artifact. 2. No acute process. This report was electronically signed by Zackery Heck MD 10/10/2021 5:00 PM Reported By: ZACKERY HECK M.D. Signed By: ZACKERY HECK M.D. [facility] CT HEAD/BRAIN W/O CONon 09-24 CT HEAD/BRAIN W/O CON EXAMINATION: CT HE AD/BRAIN W/O CON CLINICAL HISTORY: Headache. Syncope. Hypertension. TECHNIQUE: Serial axial images without IV contrast were obtained from the vertex to the foramen magnum. MQ: CTBWO_3 COMPARISON: None. RESULT: Post-operative change: None. Acute change: No evidence of an acute infarct or other acute parenchymal process. Hemorrhage: No evidence of acute intracranial hemorrhage. ECASS hemorrhagic transformation score: Not Applicable Mass Lesion / Mass Effect: There is no evidence of an intracranial mass or extraaxial fluid collection. No significant mass effect. Chronic change: None apparent. Parenchyma: There is no significant volume loss. The brain parenchyma is otherwise within normal limits for age. Ventricles: The ventricles are within normal limits of size and configuration for age. Paranasal sinuses and skull base: The visualized paranasal sinuses are grossly clear. The skull base and imaged soft tissues are unremarkable. Tin Flopper (topogram) images: No acute findings. IMPRESSION: No acute intracranial process. This report was electronically signed by Nadya Eagle MD 10/10/2021 4:50 PM Reported By: NADYA EAGLE M.D. Signed By: NADYA EAGLE M.D. [facility] EKGon 10-10-2021 Electrocardiogram Procedure Date and T sebas: 10/10/21 165 Test Reason : STAT Blood Pressure : / mmHG Vent. Rate : 080 BPM Atrial Rate : 080 BPM P-R Int : 134 ms QRS Dur : 088 ms QT Int : 372 ms P-R-T Axes : 067 022 047 degrees QTc Int : 429 ms Normal sinus rhythm Normal ECG No previous ECGs available Confirmed by MASON MARTE A. ([id number]) on 10/11/2021 1:02:14 PM Referred By: Sandie Rosenthal Confirmed By:Dev MARTE M.D.FACC Sussy DDandT: 10/10/211650 TDandT: [facility] PATIENT NAME: SUN PAIZ [facility] [address] MEDICAL REC #: [id number] [place] [address] ADMIT DATE: DISCHARGE DATE: 10/10/21 ATTENDING ARUNY: Everardo Jarrett MD ELECTROCARDIOGRAM REPORT CLB cc: [facility] PATIENT NAME: SUN PAIZ [facility] [address] MEDICAL REC #: [id number] [place] [address] ADMIT DATE: DISCHARGE DATE: 10/10/21 ATTENDING PHY: Everardo Jarrett MD ELECTROCARDIOGRAM REPORT Normal [facility] Denise 10-10-2021 EMERGENCY PHYSICIAN REPORT This is a preliminary report only, as the practitioner review and authentication has not occurred. Normal [facility] ER PHYSICIAN ASSESSMENT RECORDS : [employer] Event Time: 10/10/2021 18:10 Status: Signed [facility] Sun Paiz [[id number]] Attending Physician 41 / F / 1980 Addendum (V2b) Chart created at 10/10/2021 17:57 by Everardo Jarrett Chart closed at 10/11/2021 00:16 Entry in Emergency Department at 10/10/2021 14:17, departure at 10/10/2021 18:47 Patient Name: Sun Paiz Record Number: [id number] Date: 10/10/2021 17:57 Entered Department at: 10/10/2021 14:17 Patient Seen at: 10/10/2021 15:13 PCP: Alfredo Armstrong Chief Complaint:Fever, headache and dizziness, states passed out yesterday. CBC W/DIFF, information as of 10/10/2021, 3:24 pm 90.7 / 11.2* / 7.2 andgt;------andlt; 363 / 33.3* / N:65.4 BASO ABS: 0.00 K/Cu Mm; BASOPHIL %: 0.6 %; EOS ABS: 0.00 K/Cu Mm; EOSINOPHIL %: 0.6 %; IMMATR GRAN ABS: 0.00 K/Cu Mm; IMMATURE GRAN %: 0.4 %; LYMPH %: 26.6 %; LYMPH ABS: 1.90 K/Cu Mm; MCHC: 33.6 Gm/Dl; MONO ABS: 0.50 K/Cu Mm; MONOCYTE %: 6.4 %; MPV: 10.8; NEUTROPHIL ABS: 4.70 K/Cu Mm; NRBC: 0.0 %; RBC: 3.67 M/Cu Mm; RDW: 14.1 BMP, information as of 10/10/2021, 3:24 pm [facility] PATIENT NAME: SUN PAIZ [address] [facility] [address] MEDICAL REC #: [id number] [place] [address] EMERGENCY DEPARTMENT REPORT EMERGENCY DEPARTMENT PHYSICIAN 141 --------+--------+--------and lt; 89 Anion Gap = 8 3.8 BUN/CREA: 11; CALCIUM TOTAL: 9.7 Mg/Dl TROPONIN I, information as of 10/10/2021, 3:04 pm TROPONIN I: Less Than 2.5 Pg/Ml PT, information as of 10/10/2021, 3:24 pm INR: 1.00 PTS: 10.9 Seconds HCG, information as of 10/10/2021, 3:04 pm HCG SER RESULT: Neg UA COMPLETE, information as of 10/10/2021, 3:24 pm + +---------+------- --+---------+---------+------ -- + + +---------+------- --+---------+---------+------ -- + + +---------+------- --+---------+---------+------ -- + + +---------+------- --+---------+---------+------ -- + + +---------+------- --+---------+---------+------ -- + TSH, information as of 10/10/2021, 3:24 pm TSH: 4.908 Uiu/Ml THY FUNC TESTS, information as of 10/10/2021, 3:24 pm T3 UP: 36.4 %; T4: 6.6 Ug/Dl [facility] PATIENT NAME: SUN PAIZ [address] [facility] [address] MEDICAL REC #: [id number] [place] [address] EMERGENCY DEPARTMENT REPORT EMERGENCY DEPARTMENT PHYSICIAN [id number], information as of 10/10/2021, 3:24 pm [id number]: Neg MAGNESIUM, information as of 10/10/2021, 3:24 pm M.7 Imaging Study Obtained: CT (HEAD/BRAIN) WO CONT Imaging Study Obtained: CT ANGIO (THORAX) FOR PE Imaging Study Obtained: CT HEAD/BRAIN W/O CON, Status:Signed Report Available EXAMINATION: CT HEAD/BRAIN W/O CON CLINICAL HISTORY: Headache. Syncope. Hypertension. TECHNIQUE: Serial axial images without IV contrast were obtained from the vertex to the foramen magnum. MQ: CTBWO_3 COMPARISON: None. RESULT: Post-operative change: None. Acute change: No evidence of an acute infarct or other acute parenchymal process. Hemorrhage: No evidence of acute intracranial hemorrhage. ECASS hemorrhagic transformation score: Not Applicable Mass Lesion / Mass Effect: There is no evidence of an intracranial mass or extraaxial fluid collection. No significant mass effect. [facility] PATIENT NAME: SUN PAIZ [address] [facility] [address] MEDICAL REC #: [id number] [place] [address] EMERGENCY DEPARTMENT REPORT EMERGENCY DEPARTMENT PHYSICIAN Chronic change: None apparent. Parenchyma: There is no significant volume loss. The brain parenchyma is otherwise within normal limits for age. Ventricles: The ventricles are within normal limits of size and configuration for age. Paranasal sinuses and skull base: The visualized paranasal sinuses are grossly clear. The skull base and imaged soft tissues are unremarkable. Tin Flopper (topogram) images: No acute findings. IMPRESSION: No acute intracranial process. This report was electronically signed by Nadya Eagle MD 10/10/2021 4:50 PM Reported By: NADYA EAGLE M.D. Medical Decision Making 41-Year-old female with past medical history of depression, Graves disease presents to ER today with multiple symptoms, reports having a charley horse in the right leg on Thursday, still having some residual pain there but improved, denies any history of DVT or PE, she does have an IUD. She passed out on Thursday, no trauma. Reports having a headache since then also quite a temperature yesterday, no cough, urinary symptoms, vomiting, diarrhea, (more content not included)... Normal [facility] GFR ESTon 10-10-2021 IF AMER Greater than 60 Normal [facility] Comment on above: Order Comment: Campu s: M Performed By: #### L 500.21591, L500.52210 #### [facility] [address] [place] [address] IF non-AFR AMER Greater than 60 Normal [facility] Comment on above: Order Comment: Campu s: M Performed By: #### L 500.39767, L500.37757 #### [facility] [address] [place] [address] HCGon 10-10-2021 HCG SER RESULT Negative Normal NEGATIVE [facility] Comment on above: Order Comment: Campu s: M Performed By: #### L 500.79250, L500.79333 #### [facility] [address] [place] [address] JSon 10-10-2021 [facility] JS DATE OF SERVICE: CHIEF COMPLAINT: A 41-year-old female with a chief complaint of headache, dizziness, bilateral fingers burning, fever and pain on the right side of her chest. HISTORY OF PRESENT ILLNESS: This is a 41-year-old female who presented to [facility] with complaints of a headache, feeling dizzy, bilateral fingers burning, fever with T-max of 103 and pain to the right side of her chest. She states that the pain on the right side of her chest feels bruised when she pushes on it. She states that yesterday she had a syncopal episode. She denies falling or hitting her head. She just states that she just got real dizzy, she sat down and she passed out for a second. REVIEW OF SYSTEMS: She has no history of migraines. She denies any nausea or vomiting. Denies any blurred vision or change in vision. She denies any lifestyle changes such as new diets or medications. Denies any bowel or bladder symptoms. She denies any chest pain or shortness of breath. She states that she had COVID one year ago and she has been vaccinated. She took a home test for COVID that was negative [facility] PATIENT NAME: SUN PAIZ [facility] MEDICAL REC #: [id number] [place] [address] [facility] RE[facility] PH[facility]ICIAN and that was yesterday. States she feels real fatigued when she goes up and down stairs. 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 She does state that her coworker noticed it as well. She does have a history of Graves disease. She sees an java developer with security clearance for this and the java developer with security clearance took her off of medications one year ago. She states that she saw her java developer with security clearance in May and her thyroid was checked and everything was in normal limits. Family history is positive for MIs in the 40s, and that pertains to the paternal uncle and grandmother. Both sides of the family have a history of hypertension. Patient denies any history of hypertension. All other systems addressed and negative. ALLERGIES: BACTRIM. MEDICATIONS: Citalopram. PAST MEDICAL HISTORY: Depression and Graves disease. SOCIAL HISTORY: Nontobacco or alcohol user. [facility] PATIENT NAME: SUN PAIZ Candelaria Massey MEDICAL REC #: [id number] [place] [address] [facility]ICIAN PHYSICAL EXAMINATION: Vitals: 118/88, 85, 16, 98.6 and 100% on room air. Reports her pain as a 2/10. General: She does not appear to be in any acute distress. She is alert and oriented x3. Her speech is clear. Her thoughts seem well organized. It does not appear that she is aphasic in any manner. Pupils are equal and reactive to light and accommodation. Extraocular movements are intact. Red reflex present without any nicking or curtain. Cranial nerves 2-12 are grossly intact. Deep tendon reflexes are brisk and symmetrical in the upper and lower extremities. Strength is 5/5 and equal bilaterally in the upper extremities. Strength 5/5 in the lower extremities and equal as well. Positive sensation in the upper and lower extremities. Capillary refill less than 3. Strong radial and pedal pulses and equal bilaterally. Abdomen is soft, nontender and nondistended. Bowel sounds are present. No organomegaly or gross deformities. No aortic, renal or iliac bruits noted. There are no carotid bruits noted as well. Heart rate is regular, rhythm is regular. No murmurs, clicks or gallops. She had pain on palpation of that right anterior chest wall just above her right breast. No ecchymosis noted. No soft tissue swelling. It did appear to be more musculoskeletal in nature. Lungs [facility] PATIENT NAME: SUN PAIZ [address] Massey MEDICAL REC #: [id number] [place] [id number] [facility] are clear to auscultation bilaterally. No wheezes, rales or rhonchi. TESTS: None. IMPRESSION: 1. Headache. 2. Syncopal episode. 3. Fever. 4. Numbness and tingling to bilateral hands. PLAN: I did send her to [facility]. She was transported by her family. She appeared stable on transport. I did discuss with the patient that there were some concerning symptoms, most importantly the syncopal episode yesterday, her indicating that she felt that she was having some trouble putting some words together, she is having some neurological symptoms with numbness and tingling in her fingers and for (more content not included)... Normal [facility] MAGNESIUMon 10-10-2021 Magnesium [Mass/Vol] 1.7 mg/dL Normal 1.6-2.6 [facility] Comment on above: Order Comment: Bharathu s: M Performed By: #### L 500.30219, L500.09154 #### [facility] [address] [place] [address] PTon 10-10-2021 INR Coag (PPP) [Relative time] 1.00 {INR} Normal 0.9-1.1 [facility] Comment on above: Order Comment: Reina s: M Result Comment: Armaan mmended PT INR therapeutic range for usp and prophylactic therapy is 2.0 - 3.0. For heart valve and shunt patients the range is 2.5 - 3.5. Performed By: #### L 300.92740 #### [facility] [address] [place] [address] PTS 10.9 SECONDS Normal 9.5-12.0 [facility] Comment on above: Order Comment: Reina s: M Performed By: #### L 300.90274 #### [facility] [address] [place] [address] [id number] 10-10-2021 SARS-CoV-2 (COVID-19) RNA ADILIA+probe Ql (Unsp spec) Negative Invalid Interpretation Code Negative [facility] Comment on above: Order Comment: Reina Nuñez Result Comment: RESU LTS CALLED TO Grady COLBERT/ED AT 1707 10/10/21 BY YONG MARIA Negative results do not preclude SARS-CoV-2 infection and should not be used as the sole basis for treatment or other patient management decisions. Negative results must be combined with clinical observation, patient history, and epidemiological information. This test was performed by PCR. Performed By: #### L 700.44044, L750.15967 #### [facility] [address] [place] [phone] RESP/COVID PCRon 10-10-2021 ADENOVIRUS PCR Not detected Normal NOT DETECTD [facility] Comment on above: Order Comment: Campu s: M Performed By: #### L 700.33185, L750.36591 #### [facility] [address] [address] B PARA PCR Not detected Normal NOT DETECTD [facility] Comment on above: Order Comment: Campu s: M Performed By: #### L 700.15473, L750.75133 #### [facility] [address] [address] B PERTUSSIS PCR Not detected Normal NOT DETECTD [facility] Comment on above: Order Comment: Campu s: M Performed By: #### L 700.94414, L750.36708 #### [facility] [address] [place] [phone] C PNEUMONIA PCR Not detected Normal NOT DETECTD [facility] Comment on above: Order Comment: Campu s: M Performed By: #### L 700.64279, L750.24783 #### [facility] [address] [place] [phone] CORONAVIR 229E Not detected Normal NOT DETECTD [facility] Comment on above: Order Comment: Campu s: M Performed By: #### L 700.05783, L750.59792 #### [facility] [address] [place] [phone] CORONAVIR HKU1 Not detected Normal NOT DETECTD [facility] Comment on above: Order Comment: Campu s: M Performed By: #### L 700.38643, L750.96219 #### [facility] [address] [place] [phone] CORONAVIR NL63 Not detected Normal NOT DETECTD [facility] Comment on above: Order Comment: Bharathu s: M Performed By: #### L 700.96108, L750.67297 #### [facility] [address] [place] [phone] CORONAVIR OC43 Not detected Normal NOT DETECTD [facility] Comment on above: Order Comment: Campu s: M Performed By: #### L 700.72920, L750.69663 #### [facility] [address] [address] FLU A NO SUBTYP Not detected Normal NOT DETECTD [facility] Comment on above: Order Comment: Campu s: M Performed By: #### L 700.81512, L750.56395 #### [facility] [address] [place] [phone] HUMAN METAPNEUM Not detected Normal NOT DETECTD [facility] Comment on above: Order Comment: Campu s: M Performed By: #### L 700.01515, L750.63976 #### [facility] [address] [place] [phone] INFLUENZA A H1 Not detected Normal NOT DETECTD [facility] Comment on above: Order Comment: Campu s: M Performed By: #### L 700.60601, L750.40251 #### [facility] [address] [place] [phone] INFLUENZA A H3 Not detected Normal NOT DETECTD [facility] Comment on above: Order Comment: Campu s: M Performed By: #### L 700.12529, L750.49689 #### [facility] [address] [place] [phone] INFLUENZA B PCR Not detected Normal NOT DETECTD [facility] Comment on above: Order Comment: Campu s: M Performed By: #### L 700.43076, L750.08726 #### [facility] [address] [place] [address] M PNEUMONIA PCR Not detected Normal NOT DETECTD [facility] Comment on above: Order Comment: Campu s: M Performed By: #### L 700.02363, L750.92683 #### [facility] [address] [place] [phone] PARAINFLUENZA 1 Not detected Normal NOT DETECTD [facility] Comment on above: Order Comment: Bharathu s: M Performed By: #### L 700.17496, L750.44743 #### [facility] [address] [place] [address] PARAINFLUENZA 2 Not detected Normal NOT DETECTD [facility] Comment on above: Order Comment: Campu s: M Performed By: #### L 700.09957, L750.33063 #### [facility] [address] [place] [phone] PARAINFLUENZA 3 Not detected Normal NOT DETECTD [facility] Comment on above: Order Comment: Campu s: M Performed By: #### L 700.97942, L750.11011 #### [facility] [address] [place] [address] PARAINFLUENZA 4 Not detected Normal NOT DETECTD [facility] Comment on above: Order Comment: Campu s: M Performed By: #### L 700.45086, L750.51976 #### [facility] [address] [place] [address] RHINO/ENTERO Not detected Normal NOT DETECTD [facility] Comment on above: Order Comment: Campu s: M Performed By: #### L 700.40018, L750.43629 #### [facility] [address] [place] [address] RSV Not detected Normal NOT DETECTD [facility] Comment on above: Order Comment: Campu s: M Performed By: #### L 700.88004, L750.29397 #### [facility] [address] [address] SARS-CoV-2 (COVID-19) RNA ADILIA+probe Ql (Unsp spec) Not detected Normal NOT DETECTD [facility] Comment on above: Order Comment: Campu s: M Result Comment: RESU LTS CALLED TO River HORN AT 1933 10/10/21 BY ROBERT LEW Negative results do not preclude SARS-CoV-2 infection and should not be used as the sole basis for treatment or other patient management decisions. Negative results must be combined with clinical observation, patient history, and epidemiological information. This test was performed by PCR. Performed By: #### L 700.54578, L750.21791 #### [facility] [address] [address] [facility] TESTSon 10-10-2021 T3 UP 36.4 % Normal 30-39 [facility] Comment on above: Order Comment: Campu s: M Performed By: #### L 700.42212, L750.90009 #### [facility] [address] [place] [address] T4 [Mass/Vol] 6.6 ug/dL Normal 4.8-13.9 [facility] Comment on above: Order Comment: Campu s: M Result Comment: RESU LTS MAY BE FALSELY ELEVATED AFTER THE ADMINISTRATION OF SULFASALAZINE. Performed By: #### L 700.09626, L750.14104 #### [facility] [address] [address] TROPONIN Ion 10-10-2021 Troponin I.cardiac [Mass/Vol] 2.5 ng/mL Normal 0-34 [facility] Comment on above: Order Comment: Reina Nuñez Result Comment: NOTE NEW NORMAL RANGE DUE TO REAGENT CHANGE This assay uses different antibodies than our current assay, and assays, even by the same edge inker heels may recognize different regions of the antibody and cannot be used interchangeably. Expect results of this assay to run higher than the previous assay. Performed By: #### L 700.67923, L750.45115 #### [facility] [address] [place] [address] Troponin I.cardiac [Mass/Vol] 2.5 ng/mL Normal 0-34 [facility] Comment on above: Order Comment: Reina Nuñez Result Comment: NOTE NEW NORMAL RANGE DUE TO REAGENT CHANGE This assay uses different antibodies than our current assay, and assays, even by the same edge inker heels may recognize different regions of the antibody and cannot be used interchangeably. Expect results of this assay to run higher than the previous assay. Performed By: #### L 700.42976, L750.90639 #### [facility] [address] [place] [phone] TSHon 10-10-2021 TSH 4.908 UIU/ML High 0.358-3.74 0 [facility] Comment on above: Order Comment: Reina Nuñez Result Comment: 3rd generation ultra sensitive TSH Performed By: #### L 700.67247, L750.00303 #### [facility] [address] [place] [address] UA COMPLETEon 10-10-2021 Color (U) Straw Normal [facility] Comment on above: Order Comment: Reina Nuñez Performed By: #### L 600.98316 #### [facility] [address] [place] [address] Glucose (U) [Mass/Vol] Negative Normal NORMAL [facility] Comment on above: Order Comment: Campu s: M Performed By: #### L 600.36453 #### [facility] [address] [place] [address] UA APPEARANCE Clear Normal CLEAR [facility] Comment on above: Order Comment: Campu s: M Performed By: #### L 600.78388 #### [facility] [address] [place] [address] UA BILIRUBIN Negative Normal NEGATIVE [facility] Comment on above: Order Comment: Campu s: M Performed By: #### L 600.58211 #### [facility] [address] [place] [address] UA BLOOD Negative Normal NEGATIVE [facility] Comment on above: Order Comment: Campu s: M Performed By: #### L 600.42613 #### [facility] [address] [place] [address] UA KETONE Negative Normal NEGATIVE [facility] Comment on above: Order Comment: Campu s: M Performed By: #### L 600.81763 #### [facility] [address] [place] [address] UA LK ESTERASE Negative Normal NEGATIVE [facility] Comment on above: Order Comment: Campu s: M Performed By: #### L 600.90624 #### [facility] [place] [address] UA NITRITE Negative Normal NEGATIVE [facility] Comment on above: Order Comment: Campu s: M Performed By: #### L 600.96525 #### [facility] [address] [place] [address] UA PH 6.0 Normal 5-6 [facility] Comment on above: Order Comment: Campu s: M Performed By: #### L 600.29209 #### [facility] [address] [place] [address] UA PROTEIN Negative Normal NEGATIVE [facility] Comment on above: Order Comment: Campu s: M Performed By: #### L 600.59932 #### [facility] [address] [place], [place] [address] UA SPEC GRAV 1.005 Normal 1.005-1.03 0 [facility] Comment on above: Order Comment: Campu s: M Performed By: #### L 600.33502 #### [facility] [address] [place] [address] UA UROBILINOGEN Negative Normal NORMAL [facility] Comment on above: Order Comment: Campu s: M Performed By: #### L 600.70909 #### [facility] [address] [place], [place] [address] VLVDon 10-10-2021 VENOUS DUPLEX REPORT Normal [facility] VLVD VASCULAR REPORT Patient: SUN PAIZ Account [id number] Ordering Phy: MR: [id number] Reason for Visit: HEADACHE,DIZZINESS/TRIAGE Date of Service 10/10/21 Reading Physician: Lionel Wagoner MD [id number] ER [id number] SINGLE LE VENOUS DUPLEX SCAN [place] [address] Non- Invasive Vascular Laboratory Lower Extremity Venous Duplex Name: SUN PAIZ Study Date: 10/10/2021 03:47 PM Patient Location: [facility] : 1980 Gender: Female Age: 41 yrs Ethnicity: [place] Accession No. [id number] No. [id number] Order No. [id number] Reason For Study: M79.604 Pain in Right Leg Interpretation Summary No evidence of deep vein thrombosis (DVT) or superficial vein thrombosis in the right lower extremity. CC: Reynaldo Ocamop,Emergency Physicians [facility] PATIENT NAME: SUN PAIZ [address] Massey MEDICAL REC #: [id number] [place] [address] ADMIT DATE: DISCHARGE DATE: VENOUS DUPLEX REPORT ATTENDING PHY: Reynaldo Ocampo,Emergency Physicians Electronically Signed by: Lionel Wagoner MD Esign Date: 10/10/21 VASCULAR REPORT Patient: SUN PAIZ Account [id number] Ordering Phy: MR: [id number] Reason for Visit: HEADACHE,DIZZINESS/TRIAGE Date of Service 10/10/21 Reading Physician: Lionel Wagoner MD Procedure: Venous Duplex completed with the patient in the Reverse Trendelenburg position. Right Findings Left Findings Veins Spont PhasicAugmentPulsatilRefluxVe ins Spont PhasicAugmentPulsatilReflux CFV. Normal.Normal.Normal. No. CFV. Normal.Normal.Normal. No. FV. Normal.Normal.Normal. No. POP. Normal.Normal.Normal. No. GSV. Normal.Normal.Normal. No. Compression Compression Rt. CFV: Lt. CFV: Completely Completely Compressible. Compressible. Rt. DFV: Completely Compressible. Rt. FV Prox: Completely Compressible. Rt. FV Mid: Competely Compressible. Rt. FV Dist: Completely Compressible. Rt. POP: Completely Compressible. Rt. Ant Tib: Completely Compressible. Rt. PTV: CC: Reynaldo Ocampo,Emergency Physicians [facility] PATIENT NAME: SUN PAIZ [address] Massey MEDICAL REC #: [id number] [place] [address] ADMIT DATE: DISCHARGE DATE: VENOUS DUPLEX REPORT ATTENDING PHY: Reynaldo Ocampo,Emergency Physicians Electronically Signed by: Lionel Wagoner MD Esign Date: 10/10/21 VASCULAR REPORT Patient: SUN PAIZ Account [id number] Ordering Phy: MR: [id number] Reason for Visit: HEADACHE,DIZZINESS/TRIAGE Date of Service 10/10/21 Reading Physician: Lionel Wagoner MD Completely Compressible. Rt. PeroV: Completely Compressible. Rt. Gastroc: Completely Compressible. Rt. Soleal: Completely Compressible. Rt. GSV: Completely Compressible. Rt. SSV: Completely Compressible. Right Findings The right lower extremity was evaluated with grayscale, color and spectral Doppler. The level of the calf to the level of the common femoral vein shows compressibility throughout the deep and superficial venous system. Color and spectral Doppler waveform analysis of the deep and superficial venous system demonstrates spontaneous, phasic and augmented flow with no evidence of reflux in the deep or superficial venous system,. These findings are consistent with the absence of deep vein thrombosis (DVT) or superficial vein thrombosis. Contralateral common femoral vein visualized for comparison and is normal with spontaneous, phasic venous flow. Electronically signed by: Lionel Wagoner MD 10/10/2021 05:09 PM CC: Reynaldo Ocampo,Emergency Physicians [facility] PATIENT NAME: SUN PAIZ [address] Massey MEDICAL REC #: [id number] [place] [address] ADMIT DATE: DISCHARGE DATE: VENOUS DUPLEX REPORT ATTENDING PHY: Reynaldo Ocampo,Emergency Physicians Electronically Signed by: Lionel Wagoner MD Esign Date: 10/10/21 VASCULAR REPORT Patient: SUN PAIZ Account [id number] Ordering Phy: MR: [id number] Reason for Visit: HEADACHE,DIZZINESS/TRIAGE Date of Service 10/10/21 Reading Physician: Lionel Wagoner MD Ordering Physician: Sandie Rosenthal Performed By: Veronica Dorsey RVT CC: Sandie Rosenthal CC: Reynaldo Ocampo,Emergency Physicians (more content not included)... Normal [facility] Vital Signs Date Time Vital Sign Value Performing Clinician Lg celis 12-01-2024 22:54-0400 Body temperature 98 [degF] No Primary Care Physician [facility] 12-01-2024 22:54-0400 Diastolic blood pressure 83 mm[Hg] No Primary Care Physician [facility] 12-01-2024 22:54-0400 Heart rate 83 /min No Primary Care Physician [facility] 12-01-2024 22:54-0400 Respiratory rate 16 /min No Primary Care Physician [facility] 12-01-2024 22:54-0400 SaO2% (BldA) [Mass fraction] 100 % No Primary Care Physician [facility] 12-01-2024 22:54-0400 Systolic blood pressure 128 mm[Hg] No Primary Care Physician [facility] 12-01-2024 20:14-0400 Body height 160.02 cm No Primary Care Physician [facility] 12-01-2024 20:14-0400 Body mass index (BMI) [Ratio] 31.6 kg/m2 No Primary Care Physician [facility] 12-01-2024 20:14-0400 Body weight 81.19 kg No Primary Care Physician [facility] 11-19-2023 13:18-0400 Body height 160.[address] Alfredo Armstrong Work Phone: [phone] [place] [address] 11-19-2023 13:16-0400 Body mass index (BMI) [Ratio] 31.5 kg/m2 Dr. Alfredo Armstrong Work Phone: [phone])[phone] [place] [address] 11-19-2023 13:16-0400 Body weight 80.[address] Alfredo Armstrong Work Phone: 9(289)795-192429 [address] 11-19-2023 13:16-0400 Diastolic blood pressure 81 mm[Hg] Dr. Alfredo Armstrong Work Phone: 6(336)[phone] [address] 11-19-2023 13:16-0400 Systolic blood pressure 134 mm[Hg] Dr. Alfredo Armstrong Work Phone: 6(653)[phone] [address] 12-25-2022 15:56-0400 Body height 160.[address] Alfredo Armstrong Work Phone: [phone])334-968575 [place] [address] 12-25-2022 15:56-0400 Body mass index (BMI) [Ratio] 30.3 kg/m2 Dr. Alfredo Armstrong Work Phone: [phone])[phone] [address] 12-25-2022 15:56-0400 Body weight 77.[address] Alfredo Armstrong Work Phone: 1(481)[phone] [address] 12-25-2022 15:56-0400 Diastolic blood pressure 67 mm[Hg] Dr. Alfredo Armstrong Work Phone: 6(352)[phone] [address] 12-25-2022 15:56-0400 Systolic blood pressure 95 mm[Hg] Dr. Alfredo Armstrong Work Phone: [facility] 11-13-2022 15:34-0400 Body height 160.[address] Alfredo Armstrong Work Phone: [facility] 11-13-2022 15:32-0400 Body mass index (BMI) [Ratio] 29.7 kg/m2 Dr. Alfredo Armstrong Work Phone: [facility] 11-13-2022 15:32-0400 Body weight 76.[address] Alfredo Armstrong Work Phone: [facility] 11-13-2022 15:32-0400 Diastolic blood pressure 75 mm[Hg] Dr. Alfredo Armstrong Work Phone: [facility] 11-13-2022 15:32-0400 Systolic blood pressure 108 mm[Hg] Dr. Alfredo Armstrong Work Phone: [facility] 01-02-2022 15:17-0400 Body height 160.[address] Alfredo Armstrong Work Phone: [facility] Work Phone: 01-02-2022 15:17-0400 Body mass index (BMI) [Ratio] 27.4 kg/m2 Dr. Alfredo Armstrong Work Phone: [facility] Work Phone: 01-02-2022 15:17-0400 Body weight 70.[address] Alfredo Armstrong Work Phone: [facility] Work Phone: 01-02-2022 15:17-0400 Diastolic blood pressure 72 mm[Hg] Dr. Alfredo Armstrong Work Phone: [facility] Work Phone: 01-02-2022 15:17-0400 Systolic blood pressure 128 mm[Hg] Dr. Alfredo Armstrong Work Phone: [facility] Work Phone: 12-12-2021 08:58-0400 Body height 160.[address] Alfredo Armstrong Work Phone: [facility] Work Phone: 12-12-2021 08:58-0400 Body mass index (BMI) [Ratio] 27.8 kg/m2 Dr. Alfredo Armstrong Work Phone: [facility] Work Phone: 12-12-2021 08:58-0400 Body weight 71.[address] Alfredo Armstrong Work Phone: [facility] Work Phone: 12-12-2021 08:58-0400 Diastolic blood pressure 82 mm[Hg] Dr. Alfredo Armstrong Work Phone: [facility] Work Phone: 12-12-2021 08:58-0400 Systolic blood pressure 120 mm[Hg] Dr. Alfredo Armstrong Work Phone: [facility] Work Phone: 10-28-2021 13:28-0500 Body height 160.[address] Alfredo Armstrong Work Phone: [facility] Work Phone: 10-28-2021 13:28-0500 Body mass index (BMI) [Ratio] 27.8 kg/m2 Dr. Alfredo Armstrong Work Phone: [facility] Work Phone: 10-28-2021 13:28-0500 Body weight 71.[address] Alfredo Amrstrong Work Phone: [facility] Work Phone: 10-28-2021 13:28-0500 Diastolic blood pressure 82 mm[Hg] Dr. Alfredo Armstrong Work Phone: [facility] Work Phone: 10-28-2021 13:28-0500 Systolic blood pressure 102 mm[Hg] Dr. Alfredo Armstrong Work Phone: [facility] Work Phone: Encounters Encounter Date Encounter Type Care Provider Facility Start: 12-01-2024 End: 12-01-2024 Emergency department patient visit No Primary Care Physician -Emergency Department Work Phone: Start: 12-07-2023 End: 12-07-[address] Alfredo Armstrong Work Phone: [facility] Work Phone: Start: 12-07-2023 End: 12-07-[address] Alfredo Armstrong Work Phone: [facility] Work Phone: Start: 11-19-2023 End: 11-19-[address] Alfredo Armstrong Work Phone: [facility] Work Phone: Start: 11-19-2023 End: 11-19-[address] Alferdo Armstrong Work Phone: [facility] Work Phone: Start: 11-19-2023 End: 11-19-[address] Alfredo Armstrong Work Phone: [facility] Work Phone: Start: 12-25-2022 End: 12-25-[address] Alfredo Armstrong Work Phone: [facility] Work Phone: Start: 12-25-2022 End: 12-25-[address] Alfredo Armstrong Work Phone: [facility] Specimen Start: 12-25-2022 End: 12-25-[address] Alfredo Armstrong Work Phone: [facility] Start: 12-03-2022 End: 12-03-[address] Alfredo Armstrong Work Phone: [facility] Start: 11-13-2022 End: 11-13-[address] Alfredo Armstrong Work Phone: [facility] Work Phone: Start: 11-13-2022 End: 11-13-[address] [facility] Start: 11-13-2022 End: 11-13-[address] Alfredo Armstrong Work Phone: [facility] Start: 06-30-2022 End: 06-30-2022 ambulatory CHANCE BECKFORD [facility]:[id number] Start: 01-02-2022 End: 01-02-[address] Alfred[facility] Armstrong [facility] Start: 01-02-2022 End: 01-02-[address] Alfredo Armstrong Work Phone: [facility] Start: 12-16-2021 End: 12-16-2021 Subsequent hospital visit by physician Nathalia Almonte MD Work Phone: [facility] Comment on above: E03.9 Start: 12-12-2021 End: 12-12-[address] Alfred[facility] Armstrong [facility] Start: 12-12-2021 End: 12-12-[address] Alfredo Armstrong Work Phone: [facility] Start: 11-25-2021 End: 11-25-[address] Alfredo Armstrong Work Phone: [facility] Start: 10-28-2021 End: 10-28-[address] Alfredo Armstrong Work Phone: [facility] Spec[facility] Start: 10-28-2021 End: 10-28-[address] Alfredo Armstrong Work Phone: [facility] Procedures Date Procedure Procedure Detail Performing Clinician Start: 12-07-2023 Screening mammography Hellen Armstrong Work Phone: Start: 12-03-2022 Screening mammography D river Armstrong Work Phone: Start: 01-02-2022 Cytopathology proced ure, preparation of smear, genital source Dr. Alfredo Armstrong Work Phone: Start: 01-02-2022 Investigation of transfusion reaction Dr. Alfredo Armstrong Work Phone: Start: 11-25-2021 Screening mammography Hellen Armstrong Work Phone: Start: 10-10-2021 Ecg routine ecg w/le ast 12 lds i&r only Plan of Treatment Date Care Activity Detail Author Start: 12-01-2024 [facility] Start: 11-13-2022 Liquid based cervica l cytology screening [facility] Start: 04-24-2022 Influenza vaccination INFLUENZ A (Season Ended) [facility] Start: 01-28-2022 HPV TESTING HPV TESTING [facility] Start: 01-28-2022 PAP TESTING PAP TESTING [facility] Start: 2020 Mammography MAMMOGRAM [facility] Start: 1999 Urine microalbumin profile DTAP,TDAP,TD (1 - Tdap) [facility] Start: 1998 HEPATITIS C SCREENING HEPATITIS C IL KIM [facility] Start: 1992 Adult depression screening assessment DEPRESSION SCREENING [facility] Start: 1985 COVID-19 VACCINE (1) COVID-19 VACCIN E (1) [facility] CBC W Auto Different ial panel - Blood [facility] Hemoglobin A1c/Hemoglobin.total in Blood [facility] Lipid 1996 panel - S jeffry or Plasma [facility] MG Breast - bilatera l Screening [facility] MG Breast - bilatera l Screening [facility] Path report.final Dx Spec [facility] Patient Education Bruises (Contusions) [facility] Work Phone: Patient referral [facility] Work Phone: Thyroid stimulating hormone measurement [facility] Vitamin D, 25-hydrox y measurement [facility] Immunizations Immunization Date Immunization Notes Care Provider Fa susan 05-26-2012 influenza virus vaccine, unspecified formulation Nathalia Almonte MD Work Phone: [facility] Work Phone: Payers Date Payer Category Payer Self-pay [id number] 2021 Unknown [id number] 2011 Unknown [employer] BLUE CARD PPO OOS [id number] 2011-Present [phone] [address] [place] [address] PPO [id number] Unknown [id number] Social History Date Type Detail Facility Start: 10-28-2021 End: 11-19-2023 Tobacco smoking status NHIS Unknown if ever smoked 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 Work Phone: Clinical Notes 08-12-2012 to 12-01-2024 Note Date & Type Note Facility 12-01-[address] [facility] 12-01-2024 Discharge summary Note Date/Time December 01, 2024 10:50pm [facility] Medical Records Department [address] [place] [address] Emergency Department Summary 12/01/24 MR#: [id number] Acct: [id number] Name: SUN PAIZ Rep #:[id number] : 1980 44 From: Garland Kuhn PCP: Care Physician,No Primary Status :REG ER Location: ED HPI History of Present Illness Chief Complaint: General Illness Informant: patient and spouse/S.O. Narrative Narrative: Presents with increasing fatigue and bruising. States 2-day ago scratching her thigh yesterday noted a bruise on her thigh. Also scratched her left arm yesterday noted slight bruise. She does not take any antiplatelets no blood thinners. There is no gum bleeding. She been more fatigued. At urine frequency. She is on thyroid medicines this was increased in July. No cough. No hematuria no rectal bleeding. States she has slight vaginal bleedingtoday and it is not timing of her current menstrual period. She spoke with her brother who is a physician told her to go to emergency department. [facility] Medical History Low grade squamous intraepithelial lesion (LGSIL) Graves disease Thyroid disorder Home Medications ?Medication ?Instructions ?Recorded ?Last Taken ?Type levonorgestrel 20.4 mcg/24 hr (up 1 device intrauterin e ONCE 08/31/20 Unknown History to 8 yrs) 52 mg intrauterine device (Liletta) levothyroxine 75 mcg tablet 88 mcg PO DAILY 11/13/22 U nknown History bupropion HCl 150 mg 24 hr tablet, 150 mg PO QAM #30 t abs 11/19/23 Unknown Rx extended release (Wellbutrin XL) citalopram 40 mg tablet See Rx Instructions .Route 0 11/19/23 Unknown Rx .COMPLEX #90 tabs Allergy/AdvReac Type Severity Reaction Status Date / Time sulfamethoxazole (From Allergy Mild Other Verified 12/01/24 20:17 Bactrim) trimethoprim (From Bactrim) Allergy Mild Other Verified 12/01/24 20:17 Family History Mother Diabetes Thyroid disorder Hypertension Father Diabetes Hypertension Surgical History History of wisdom tooth extraction, class II edentulism H/O right knee surgery Social History Smoking Status: Never smoker alcohol intake: never substance use type: does not use caffeine: Yes what type of physical activity do you participate in: walking and aerobics frequency: 3-4 times per week seatbelt use: always do you feel safe at home: Yes additional social history: 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 [employer] ED Constitutional Constitutional ED: Reports other Details: Fatigue ; Denies chills, fever(s) or sweats ENT ENT ED: Denies sore throat Cardiovascular Cardiovascular: Denies chest pain, leg edema, palpitations or racing heartbeat Respiratory/Chest Respiratory/Chest: Denies cough, dyspnea or dyspnea on exertion Gastrointestinal Gastrointestinal: Denies abdominal pain, diarrhea, nausea or vomiting Genitourinary Genitourinary ED: Reports urinary frequency; Denies dysuria or hematuria Musculoskeletal Musculoskeletal: Denies back pain, extremity pain or neck pain Integumentary Denies rash or wounds Neurologic Neurologic: Denies headache(s), paresthesias or weakness Hematologic/Lymphatic Hematologic/Lymphatic: Reports easy bruising EXAM Physical Exam Const Vital Signs: 12/01/24 20:14 12/01/24 22:30 Temperature 97.1 F L Temperature Source Temporal Pulse Rate 85 78 Respiratory Rate 17 18 Blood Pressure 127/91 H 128/83 H Blood Pressure Mean 103 98 Pulse Ox 100 99 Oxygen Delivery Method Room Air Room Air Positive well nourished and well developed General Appearance ED: well developed and NAD HEENT Reports moist mucous membranes HEENT Narrative: No genital bleeding or hyperplasia normocephalic and atraumatic Eyes General Eye ED: Yes normal appearance of both eyes Neck full ROM Chest Wall Chest: Negative for tenderness Resp normal respiratory effort and normal air movement Effort and Inspection: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
== END | disposition home or self-care (01) ==
LOC: OPBI 15:09
PROVIDERS: Referring Provider Obstetrics & Gynecology; Visit Provider Obstetrics & Gynecology
DX: Z12.31 Encounter for screening mammogram for malignant neoplasm of breast (principal)
CPT/HCPCS: 77063; 77067